=== PATIENT | female | born 1935 | race Caucasian/White ===

== ENCOUNTER 2016-09-16 17:50 | Inpatient (IN) | payer MEDICARE, BC ==
[2016-09-16] MEDS ORDERED: 0.9 % SODIUM CHLORIDE 1000ML 1,000 ML IV SCH (18:15)
[2016-09-16 19:03] LABS: BASO % 0.5 % (0-6); EOS % 1.1 % (0-6); GRAN % 69.3 % (47-80); HEMATOCRIT 37.6 % (35.0-47.0); HEMOGLOBIN 12.4 gm/dl (11.6-16.0); LYMPH % 21.4 % (16-45); MEAN CELL VOLUME 106.8 fl (81-97); MEAN CORPUSCULAR HEMOGLOBIN 35.2 pg (27-33); MEAN PLATELET VOLUME 11.6 fl (7.4-10.4); MONO % 7.7 % (0-9); PLATELET COUNT 148 K/uL (130-400); RED BLOOD COUNT 3.52 M/uL (3.80-5.40); WHITE BLOOD COUNT W/O DIFF 5.6 K/uL (4.2-12.2)
[2016-09-16 19:08] LABS: ANION GAP 7.5 (7-16); BLOOD UREA NITROGEN 12 mg/dL (7-17); CARBON DIOXIDE 26.5 mmol/L (22-30); CREATININE 0.8 mg/dL (0.52-1.04); EST GLOMERULAR FILTRATION RATE > 60 ml/min; GLUCOSE,RANDOM 92 mg/dL (70-110); INR 0.95; PARTIAL THROMBOPLASTIN TIME 31.3 SECONDS (24.5-39.1); PROTHROMBIN TIME (PATIENT) 10.7 SECONDS (9.5-12.1)
[2016-09-16 19:16] LABS: CKMB 1.1 ug/L (0-6)
[2016-09-16] MEDS ORDERED: HEPARIN SODIUM 1000 UNIT/1 ML 10ML VIAL IVP ONE (19:25)
[2016-09-16] MEDS: HEPARIN SODIUM/D5W 25,000 UNITS in DEXTROSE 5 % IN WATER 1 BAG IV SCH ×2 (22:00)
[2016-09-17 03:13] LABS: BASO % 0.7 % (0-6); GRAN % 71.8 % (47-80); HEMATOCRIT 35.7 % (35.0-47.0); HEMOGLOBIN 12.5 gm/dl (11.6-16.0); LYMPH % 19.2 % (16-45); MEAN CELL VOLUME 105.3 fl (81-97); MEAN PLATELET VOLUME 10.1 fl (7.4-10.4); MONO % 6.3 % (0-9); PLATELET COUNT 155 K/uL (130-400); RED BLOOD COUNT 3.39 M/uL (3.80-5.40); WHITE BLOOD COUNT W/O DIFF 5.9 K/uL (4.2-12.2)
[2016-09-17 03:17] LABS: MEAN CORPUSCULAR HEMOGLOBIN 36.8 pg (27-33)
[2016-09-17 03:23] LABS: ANION GAP 5.2 (7-16); BLOOD UREA NITROGEN 10 mg/dL (7-17); CARBON DIOXIDE 28.8 mmol/L (22-30); CREATININE 0.7 mg/dL (0.52-1.04); EST GLOMERULAR FILTRATION RATE > 60 ml/min; GLUCOSE,RANDOM 95 mg/dL (70-110)
[2016-09-17 03:35] LABS: TROPONIN I 0.023 ng/mL (0.00-0.034)
[2016-09-17] MEDS: METOPROLOL SUCC 25 MG TAB.ER PO SCH ×2 (04:02→09:08)
[2016-09-17 05:37] LABS: URINE APPEARANCE CLEAR; URINE BILIRUBIN NEGATIVE (NEGATIVE); URINE BLOOD NEGATIVE (NEGATIVE); URINE COLOR YELLOW; URINE GLUCOSE (UA) NEGATIVE (NEGATIVE); URINE KETONE NEGATIVE (NEGATIVE); URINE LEUKOCYTE ESTERASE NEGATIVE (NEGATIVE); URINE NITRITE NEGATIVE (NEGATIVE); URINE PROTEIN TRACE (NEGATIVE); URINE UROBILINOGEN 0.2 E.U./dL (0.20 - 1.00)
[2016-09-17] MEDS: LEVOTHYROXINE SOD 112 MCG TAB PO SCH ×2 (06:17→09:19)
[2016-09-17] MEDS ORDERED: POTASSIUM CHLORIDE 20 MEQ TABLET PO ONE (06:23)
[2016-09-17] MEDS: LISINOPRIL 20 MG TABLET PO SCH ×2 (06:31→09:09)
--- NOTE | 2016-09-17 07:27 | RADIOLOGY REPORT ---
EXAM: CHEST, TWO VIEWS HISTORY: WEAKNESS AND NEW ONSET ATRIAL FIBRILLATION. TECHNIQUE: Two views of the chest were provided along with the comparison study dated 05/10/16. FINDINGS: Cardiomegaly is noted. Tortuosity of the thoracic aorta is again noted. There is an abdominal aortic stent graft identified within the upper abdomen. Prominent hilar pulmonary vasculature are identified. Small bilateral pleural effusions are identified. Possible small left posterior lower lobe passive atelectasis and/or infiltrate may be present. Tee B lines are identified bilaterally. There is pulmonary vascular equalization identified bilaterally with prominent interstitial markings suggesting pulmonary edema. These findings suggest mild to moderate congestive heart failure. No pneumothorax is noted. IMPRESSION: FINDINGS SUGGESTIVE OF MILD TO MODERATE CONGESTIVE HEART FAILURE. SMALL BILATERAL PLEURAL EFFUSIONS WITH MILD LEFT POSTERIOR LOWER LOBE PASSIVE ATELECTASIS AND/OR INFILTRATE MAY BE PRESENT. FOLLOW-UP PA AND LATERAL VIEWS OF THE CHEST CAN BE OBTAINED UNTIL RESOLUTION OF FINDINGS. JOB NUMBER: [id number] MTDD
--- NOTE | 2016-09-17 07:50 | History and Physical Report ---
CHIEF COMPLAINT/HISTORY OF CHIEF COMPLAINT: Weakness and some dyspnea over the last three or four days to a week. She also feels an irregular heartbeat which she does not really feel, she just feels it when she feels her pulse. She went to Dr. James's office today who evaluated her, he felt that she should be admitted to the hospital because of new onset atrial fibrillation, dyspnea and weakness. She was a direct admit to the hospital. She denies any chest pain. She has a dry cough. PAST MEDICAL HISTORY: She had an aortic stent or mesh put in the aorta, it is not clear exactly what surgery she had done maybe some sort of conduit for the aorta, but she was not really sure, done about ten years ago at [facility]. She also has COPD, hypertension, and hypothyroidism. PAST SURGICAL HISTORY: Aortic stent or conduit, biopsy of the lung, knee surgery, and macular degenerative surgery of her eye. She also has had bladder stones in the past. She has had lupus and polymyositis. MEDICATIONS ON ADMISSION: Lisinopril 20 mg a day, Levothyroxine 112 mcg per day , and Toprol XL 25 mg per day. ALLERGIES: No known drug allergies. FAMILY/PSYCHOSOCIAL HISTORY: Grandparents had diabetes. Mother and grandparents had heart disease. She is a current every day smoker. No alcohol or drug use. She had lung cancer and radiation therapy to her lung. REVIEW OF SYSTEMS: HEENT: No upper respiratory infectious symptoms, cough, cold, or congestion. Cardiovascular: No chest pain, but she has an irregular heartbeat and weakness. Respiratory: She has a dry cough. Gastrointestinal: No nausea, vomiting, diarrhea, black stools, or bloody stools. Genitourinary: No dysuria, hematuria, frequency, or burning on urination. Musculoskeletal: She has arthritis and lupus. Neurologic: No CVA, paralysis, or paresthesias. Gynecologic: No lumps in her breasts. She has had lung cancer in the past with radiation therapy. No vaginal bleeding. Endocrine: She has hypothyroidism. Integument: No rash, ulcers, change in moles or yellow skin. PHYSICAL EXAMINATION: Height is 5'7", weight is 116 pounds. Vital signs: Temperature is 98.2, pulse is 81, blood pressure is 187/104, respiratory rate is 12, O2 saturation is 94% on room air. HEENT: Pupils are equal, round and reactive to light and accommodation. Extraocular muscles are intact. Throat is clear. Nose is clear. Tympanic membranes are dobbins. NECK: Supple. No jugular venous distention. No hepatojugular reflex. No carotid bruits. Thyroid is smooth. CARDIOVASCULAR: Irregular rate and rhythm. LUNGS: Clear to auscultation and percussion. ABDOMEN: Soft, nontender. No hepatosplenomegaly. No masses. No tenderness. Bowel sounds are active. No bruits. EXTREMITIES: No pitting edema. No cyanosis. No clubbing. Full range of motion. Peripheral pulses are good. BREASTS: Deferred. GYNECOLOGICAL: Deferred. RECTAL: Deferred. NEUROLOGICAL: Cranial nerves II through XII intact. No gross defects. Sensation normal. Strength normal. Deep tendon reflexes are equal bilaterally. Babinski's negative. MENTAL STATUS: Alert and oriented times three. IMPRESSION: 1. NEW ONSET ATRIAL FIBRILLATION. 2. DYSPNEA. 3. WEAKNESS. 4. HISTORY OF HYPERTENSION. 5. HISTORY OF HYPOTHYROIDISM. 6. HISTORY OF LUNG CANCER WITH RADIATION THERAPY MANY YEARS AGO. PLAN: IV heparin with a bolus and infusion, we will start Coumadin therapy and we will get a cardiology consult. Dale Almonte D.O. Date & Time JOB NUMBER: [id number] MTDD
[2016-09-17] MEDS ORDERED: WARFARIN 5 MG TAB PO ONE (08:12)
[2016-09-17] MEDS ORDERED: CLONIDINE HCL 0.1 MG TABLET PO ONE (08:14)
[2016-09-17] MEDS ORDERED: FUROSEMIDE IV 20MG/2ML VIAL IVP ONE (08:21)
[2016-09-17] MEDS ORDERED: PANTOPRAZOLE SODIUM 40 MG TABLET PO SCH (09:00)
[2016-09-17 09:36] LABS: ANION GAP 7.4 (7-16); BLOOD UREA NITROGEN 9 mg/dL (7-17); CARBON DIOXIDE 28.6 mmol/L (22-30); CREATININE 0.7 mg/dL (0.52-1.04); EST GLOMERULAR FILTRATION RATE > 60 ml/min; GLUCOSE,RANDOM 99 mg/dL (70-110)
[2016-09-17] MEDS ORDERED: ASPIRIN 81 MG CHEWABLE TABLET PO SCH (10:00)
[2016-09-17] MEDS ORDERED: ASPIRIN 325 MG TAB ENTERIC-COATED PO SCH (10:00)
[2016-09-17] MEDS ORDERED: ONDANSETRON HCL IV 4 MG/2 ML VIAL IVP PRN (12:50)
[2016-09-17] MEDS ORDERED: ACETAMINOPHEN 500 MG TABLET PO PRN (17:40)
[2016-09-17] MEDS ORDERED: HYDRALAZINE HCL 10 MG TABLET PO ONE (17:43)
[2016-09-17] MEDS ORDERED: LABETALOL HCL 5MG/ML, 20ML VIAL IV ONE (17:57)
[2016-09-17] MEDS: HEPARIN SODIUM/D5W 25,000 UNITS in DEXTROSE 5 % IN WATER 1 BAG IV SCH ×2 (19:58)
--- NOTE | 2016-09-18 07:33 | CT SCAN REPORT ---
EXAM: HEAD CT WITHOUT CONTRAST HISTORY: CONFUSION, DEHYDRATION, HALLUCINATIONS. TECHNIQUE: Contiguous axial images from the cerebral convexities to the foramen magnum were obtained without contrast. Comparison: None. Hand dominance: Right. FINDINGS: Mild generalized atrophy of the brain. No acute intracranial hemorrhage, mass effect, or midline shift. Extensive decreased attenuation in the subcortical and periventricular white matter of the cerebral hemispheres. No CT evidence of large acute territorial infarct. The ventricles, basal cisterns, and sulci are within normal limits. The osseous structures, soft tissues, and paranasal sinuses are unremarkable. IMPRESSION: 1. NO ACUTE INTRACRANIAL PROCESS. 2. MILD GENERALIZED ATROPHY OF THE BRAIN WITH EXTENSIVE CHRONIC SMALL VESSEL ISCHEMIC CHANGE. JOB NUMBER: [id number] [facility]
--- NOTE | 2016-09-18 09:49 | Medical Records Consult ---
CONSULTATION DATE: 09/17/2016. REFERRING PHYSICIAN: Dale Almonte D.O. CONSULTING PHYSICIAN: Juan Jordan M.D. REASON FOR CONSULTATION: Atrial fibrillation and congestive heart failure. HISTORY OF PRESENTING ILLNESS: Ms. Castellano is an 80-year-old female with a history of mild aortic stenosis and mild to moderate aortic insufficiency. She presented to [facility] with complaints of weakness and nausea for three to four weeks. She lives with her daughter and [id number]. Her daughter brought her in because she was getting too weak to even walk around the house, and she was nauseous and had loss of appetite. On arrival to the emergency department the patient was found to be in atrial fibrillation, and she was admitted. This is a new onset atrial fibrillation. The patient denied any chest pain. She denies any pedal edema, orthopnea, or paroxysmal nocturnal dyspnea. She does complain of a dry cough. The patient has a history of bronchogenic carcinoma and had seen Dr. Britt in the past. She also has a history of chronic obstructive pulmonary disease as well as hypertension and hypothyroidism. The patient was admitted to [facility] in October of 2015 with complaints of chest pain. She underwent cardiac catheterization in which no obstructive lesions warranting angioplasty were seen. She had normal left ventricular function. The patient has been on Toprol-XL 25 mg daily and has been having a controlled ventricular response with her atrial fibrillation. She has had some episodes of bradycardia with pauses of up to 2 seconds during this admission on her bus monitor. However, she denies any syncopal or presyncopal episodes. The patient also was noticed to have very high blood pressure, and she also started having headaches. She denies any other focal neurologic deficits. PAST MEDICAL HISTORY: Her past medical history is significant for chronic obstructive pulmonary disease, hypertension, hypothyroidism, mild aortic valve stenosis, moderate aortic valve insufficiency, and a history of bronchogenic carcinoma. PAST SURGICAL HISTORY: Is significant for a lung biopsy, knee surgery, surgery for macular degeneration. MEDICATIONS: Her home medications include: Lisinopril 20 mg daily, Toprol-XL 25 mg daily, levothyroxine 112 micrograms daily. ALLERGIES: No known drug allergies. REVIEW OF SYSTEMS: The patient denies any fevers or chills but has been progressively getting weaker as explained in the history of present illness. She denies any pedal edema. She denies any palpitations in spite of the atrial fibrillation. She has no history of anxiety or depression. PHYSICAL EXAMINATION: General: The patient is an 80-year-old female who is sitting up in bed. She is alert and oriented x 3. Her family is at her bedside. Vital Signs: She has a blood pressure of 187/104 mm Hg, a heart rate of 74 beats per minute, a respiratory rate of 12 per minute, 02 saturation is 94% on room air, temperature of 98.3 degrees Fahrenheit. HEENT: On examination she is normocephalic, atraumatic. The pupils are equal and reactive to light. The extraocular muscles are intact. Neck: The neck is supple. Cardiovascular: On cardiovascular examination she has an irregularly irregular heart rhythm with a grade II/ systolic ejection radiating to the carotids. Lungs: The lungs are clear to auscultation bilaterally. Abdomen: The abdomen is soft and nontender. Neurological: Examination is nonfocal. LABORATORY DATA: Our laboratory data shows a white count of 5.9, hemoglobin of 12.5, and a hematocrit of 35.7. Platelet count is 155. PTT is 71.10, BUN 12, creatinine 0.8. Estimated GFR is greater than 60, sodium 142. Potassium is low at 3.1. Chloride is 108, C02 26.5, calcium 9.1. N-terminal pro-BNP is elevated at 7,670. Troponins were 0.016 and then 0.023. DIAGNOSTIC DATA: Chest x-ray shows vascular congestion suggestive of congestive heart failure. CT of the head does not show any acute intracranial process. EKG shows atrial fibrillation with a controlled ventricular response. ASSESSMENT AND PLAN: 1. New onset atrial fibrillation. Ms. Castellano has new onset atrial fibrillation with a controlled ventricular response. I agree with continuing her on Heparin as she has a fairly well controlled ventricular rate with the metoprolol 25 mg daily which will be continued. She has had some episodes of pauses as long as 2 seconds, and I would recommend she continue to be observed on bus monitor. The patient appears to be fairly symptomatic with her atrial fibrillation in the form of being tired and fatigued, and in my opinion will benefit from converting back to sinus rhythm. I would consider doing a transesophageal echocardiography-guided cardioversion. I have explained to the patient the procedure and possible outcomes. She sounds understanding and wants to proceed. The patient is being transferred to [facility]. I will follow her up at [facility] and will consider transesophageal cardioversion. 2. Since her CHADS vascular score is 4.0, she will need long-term anticoagulation as well, and I would prefer one of the newer oral anticoagulants. We will check her coverage and then start her accordingly. 3. Accelerated hypertension. The patient has significantly elevated blood pressure. I would recommend starting her on p.r.n. hydralazine as well as labetalol and continuing her on the Toprol and lisinopril. I will also add Amlodipine and then titrate the doses accordingly. The patient's nausea most likely is because of the hypertension. CT of the brain does not show any acute intracranial process which is reassuring. 4. Elevated troponins. The patient's elevated cardiac biomarkers are most likely because of the atrial fibrillation as well as the significant hypertension, and it is not because of acute coronary syndrome. The patient does not have any chest pain, and her cardiac catheterization in October of 2015 did not show any obstructive coronary artery disease. However, we will trend the troponins as well. 5. The patient's echocardiography showed preserved left ventricular systolic function. 6. Aortic valve disorder. The patient has mild aortic valve stenosis and mild to moderate aortic valve insufficiency. This has not changed as compared to last year's echocardiogram. 7. Heart failure with a preserved ejection fraction. The patient has diastolic heart failure secondary to atrial fibrillation and accelerated hypertension. I agree with intravenous diuresis as well as supplementing the potassium and managing the hypertension. I would recommend increasing the intravenous furosemide dose to 40 mg daily. Thank you very much for involving us in the management of Ms. Castellano. We will follow her up during her hospitalization at [facility]. Juan Jordan M.D. Date Time JOB NUMBER: [id number] MTDD
--- NOTE | 2016-09-20 13:24 | Discharge Summary ---
DATE OF DISCHARGE: 09/17/2016. DATE OF DICTATION: 09/18/2016 at 8:58 a.m. DISCHARGE DIAGNOSES: 1. New onset atrial fibrillation. 2. Congestive heart failure. 3. Weakness. 4. Nausea and inability to eat. 5. A history of hypertension. 6. A history of hypothyroidism. 7. A history of lung cancer with radiation therapy diagnosed in April of 2015. Dr. Britt is her oncologist. ATTENDING PHYSICIAN: Dale Almonte D.O. REASON FOR HOSPITALIZATION: Weakness, new onset atrial fibrillation, and dyspnea. HISTORY OF THE PRESENT ILLNESS: This 80-year-old female developed weakness and dyspnea over the last three to four days to a week. She noticed an irregular pulse. She went in to see Dr. James in the office. He evaluated her and felt that she needed to be admitted for new onset atrial fibrillation, dyspnea, and weakness. She was a direct admit to the hospital. She denies any chest pain. She has a dry cough. SIGNIFICANT FINDINGS: LABORATORY DATA: The troponin-I and CKMB were normal. DIAGNOSTIC DATA: Chest x-ray showed congestive heart failure. EKG showed atrial fibrillation. An echocardiogram was done by Dr. Jordan and showed diastolic heart failure. CONSULTATION: She had a consultation with Dr. Elvira Jordan who felt the patient should be transferred up to [facility] for conversion of her atrial fibrillation and further treatment and further diagnosis of her nausea and inability to eat. HOSPITAL COURSE: The patient was having a hard time with her nausea and was unable to eat. She has lost about 5 pounds on the left three months, according to her daughter. She was given Lasix 20 mg intravenous which helped her breathing. Her blood pressure was high throughout the hospitalization. Her normal blood pressure medications were given and also Clonidine 0.1 mg and then hydralazine 10 mg and labetalol 15 mg intravenous prior to discharge. DISCHARGE INSTRUCTIONS: The patient was discharged and transferred to [facility] via ambulance for further treatment. Dale Almonte D.O. Date Time JOB NUMBER: [id number] [facility]
== END 2016-09-17 20:20 | disposition short-term general hospital (02) | DRG 310 ==
LOC: MEDSURG 17:50
PROVIDERS: ADMIT Emergency Medicine; ATTEND Emergency Medicine
DX: I48.0 Paroxysmal atrial fibrillation (principal); E03.9 Hypothyroidism, unspecified; J44.9 Chronic obstructive pulmonary disease, unspecified; I10 Essential (primary) hypertension; Z85.118 Personal history of other malignant neoplasm of bronchus and lung; I50.9 Heart failure, unspecified
CPT/HCPCS: 70450; 71020; 80048; 81003; 82553; 83880; 84484; 85025; 85610; 85730; 93005; 93010; J1940; J2405

== ENCOUNTER 2017-06-07 12:01 | Inpatient (IN) | payer MEDICARE, BC ==
[2017-06-07] MEDS ORDERED: PNEUM 13-VAL/PF 0.5 ML IM ONE (12:25)
[2017-06-07] MEDS: HYDROCODONE/APAP 5/325MG TABLET PO PRN ×3 (13:08→21:28)
[2017-06-07] MEDS: NICOTINE 21 MG/24 HOUR PATCH TD SCH (16:21)
[2017-06-07] MEDS: APIXABAN 5MG TABLET PO SCH (21:29)
[2017-06-07] MEDS: ATORVASTATIN 20 MG TABLET PO SCH (21:29)
[2017-06-07] MEDS: CHOLECALCIFEROL 1,000 UNIT TABLET PO SCH (21:29)
[2017-06-08] MEDS: HYDROCODONE/APAP 5/325MG TABLET PO PRN (02:21)
[2017-06-08] MEDS: PANTOPRAZOLE SODIUM 40 MG TABLET PO SCH (06:28)
[2017-06-08] MEDS: LEVOTHYROXINE SOD 112 MCG TAB PO SCH (06:28)
[2017-06-08] MEDS: HYDROCODONE/APAP 10/325 TABLET PO PRN ×3 (09:08→22:21)
[2017-06-08] MEDS: METOPROLOL SUCC 25 MG TAB.ER PO SCH (09:09)
[2017-06-08] MEDS: APIXABAN 5MG TABLET PO SCH ×2 (09:09→22:20)
[2017-06-08] MEDS: CALCIUM CARBONATE 500 MG TAB.CHEW PO SCH (09:10)
[2017-06-08] MEDS: FOLIC ACID 1 MG TABLET PO SCH (09:10)
[2017-06-08] MEDS: ASPIRIN 81 MG TABEC PO SCH (09:10)
[2017-06-08] MEDS: NICOTINE 21 MG/24 HOUR PATCH TD SCH (17:39)
[2017-06-08] MEDS: REMOVE PATCH 1 EACH MISC TD SCH (17:40)
[2017-06-08] MEDS: ATORVASTATIN 20 MG TABLET PO SCH (22:20)
[2017-06-08] MEDS: CHOLECALCIFEROL 1,000 UNIT TABLET PO SCH (22:20)
[2017-06-09] MEDS: HYDROCODONE/APAP 10/325 TABLET PO PRN ×3 (04:57→21:47)
[2017-06-09] MEDS: PANTOPRAZOLE SODIUM 40 MG TABLET PO SCH (06:24)
[2017-06-09] MEDS: LEVOTHYROXINE SOD 112 MCG TAB PO SCH (06:24)
--- NOTE | 2017-06-09 09:38 | History & Physical ---
History of Present Illness - Date Date of Service for History & Physical: 06/09/17 - History of Present Illness Admitting Diagnosis: S/P internal fixation intertrochanteric femur fx History of Present Illness: 81 y/o admitted for deconditioning after tripping over rug at home and falling sustaining right intertrochanteric femur fx on 06/03/17 s/p right femur internal fixation 06/05/17. At baseline she is to use a cane to assist with ambulation, she was not using cane at time of trip and fall. She is an every day smoker using an nicotine patch currently. Does have remote history of colon cancer s/p resection she reports about a year ago with 1 left upper lung lesion considered metastatic in nature that was treated with 4 rounds of radiation.She reports is over due for her oncology follow up Other pertinent medical history includes a -fib on chronic oral anticoagulation therapy, hypothyroidism, lupus, emphsema with PRN oxygen use at home, dyslipidemia. Post operatively had significant pain leading to poor mobility, she was very hesitant to get out of bed, had a grijalva placed at that time to assist with urinary output. One day after arrival to [facility] grijalva was DC'd, Edon increased for pain control, she was assisted out of bed several times by staff to sit in chair periodically while awaiting PT/OT consult. Dressing to right hip intact, due to be removed 06/12/17, no obvious signs of infection or hemorrhage. Post op hgb 9.7. Noted low albumin. Will be receiving Ensure supplementation during her admission. Recheck labs in 1 week, follow up Dr Sandra 2-4 weeks. General - Cognitive Patterns Orientation: Oriented x3 - Communication Preferred Language?: Thai Telephonic Rn Required: No Level of Education: Grade 9-11 Comprehension Ability: No Impairment Able to Read: Yes Able to Write: Yes Select best description of speech pattern: Clear Speech Ability to express ideas and wants: Understood Understanding verbal content: Understands - Psychosocial Well-Being Usual Living Arrangement: Children - Physical Functioning Activity Level: Up with assist x2 Turning: With total assist ROM Ability: Limited/Compromised Assistive Devices: 2 Wheel Walker Activity Level Comment: Using one of the hospital's Ambulation Ability: Dependent Bed Mobility: Needs Assist Transfer Ability: Dependent Bathing Ability: Needs Assist Personal Hygiene: Needs Assist Dressing Ability: Needs Assist Eating (Feeding) Ability: Independent Toileting Ability: Dependent Administer Own Medication: Independent Care Ability Comment: Pt resistant to move due to pain - Continence Bowel Pattern: Constipated Bladder Pattern: Normal - Dental Status Unable to examine: No Broken or loosely fitting full or partial dentures: No No natural teeth or tooth fragment(s) (edentulous): No Abnormal mouth tissue (ulcers, masses, oral lesions, etc.): No Obvious or likely cavity or broken natural teeth: No Inflamed or bleeding gums or loose natural teeth: No Mouth/facial pain, discomfort or difficulty chewing: No - Nutrition Screening Poor oral intake > 1 week: No Unplanned weight loss in specified time frame: No Nutrition Support via tube feedings or parenteral nutrition: No Pressure Ulcer: No Significantly underweight define as BMI <18.5 kg/m2: No Albumin <2.5mg/dL: No Persistent nausea/vomiting/diarrhea >3 days: No Difficulty chewing/swallowing/mouth sores: No Admitting Diagnosis: No Nutrition Risk Score: Low Risk Past Medical History - SOCIAL HISTORY Smoking Status: Current every day smoker - SURGICAL HISTORY Past Surgical History: Biopsy of lung tissue. knee surgery. macular hole surgery - RESPIRATORY Hx Respiratory Disorders: Yes Comment:: emphysema, possible lung CA - CARDIOVASCULAR Hx Cardio Disorders: Yes Hx Hypertension: Yes Hx Irregular Heartbeat: Yes (a-fib) Comment:: aortic stent - NEURO Hx Neuro Disorders: Yes Hx Dizziness: Yes - GI Hx GI Disorders: No Hx Reflux: Yes - Hx Genitourinary Disorders: Yes Hx Bladder Problem: Yes (bladder stones) Hx Kidney Stones: Yes - ENDOCRINE Hx Endocrine Disorders: Yes Hx Thyroid Disease: Yes - MUSCULOSKELETAL Hx Musculoskeletal Disorders: Yes Hx Arthritis: Yes Comment:: lupus - PSYCH Hx Psych Problems: Yes Hx Anxiety: Yes - HEMATOLOGY/ONCOLOGY Hx Hematology/Oncology Disorders: Yes Hx Anemia: Yes Hx Cancer: Yes (lung, colon) Hx Chemotherapy: No Hx Radiation Therapy: Yes Comment:: colectomy Family Medical History Any Significant Family History?: Yes Family Hx Comment (NOT TO BE USED IN PLACE OF ITEMS BELOW): father- MS Hx Diabetes: Grandparents Hx Heart Disease: Mother, Grandparents H&P Meds/Allergies - Allergies Allergies: Allergies Allergy/AdvReac Type Severity Reaction Status Date / Time No Known Drug Allergies Allergy Verified 11/25/15 16:29 - Active Medications Active Medications: Current Medications Hydrocodone Bitart/Acetaminophen (Edon 10mg/325mg) 1 each PO Q6H PRN PRN Reason: Pain - Severe (8-10) Last Admin: 06/09/17 04:57 Dose: 1 each Apixaban (Eliquis) 5 mg PO BID [facility] Last Admin: 06/08/17 22:20 Dose: 5 mg Aspirin (Ecotrin (Ec)) 81 mg PO DAILY [facility] Last Admin: 06/08/17 09:10 Dose: 81 mg Atorvastatin Calcium (Lipitor) 20 mg PO QHS [facility] Last Admin: 06/08/17 22:20 Dose: 20 mg Calcium Carbonate/Glycine (Tums) 1,000 mg PO DAILY [facility] Last Admin: 06/08/17 09:10 Dose: Not Given Folic Acid () 1 mg PO DAILY [facility] Last Admin: 06/08/17 09:10 Dose: 1 mg Levothyroxine Sodium (Synthroid) 112 mcg PO DAILYTHY [facility] Last Admin: 06/09/17 06:24 Dose: 112 mcg Metoprolol Succinate (Toprol Xl) 25 mg PO DAILY [facility] Last Admin: 06/08/17 09:09 Dose: 25 mg Miscellaneous (Remove Patch) 1 each TD Q24H [facility] Last Admin: 06/08/17 17:40 Dose: 1 each Nicotine (Nicotine 21mg) 1 patch TD Q24H [facility] Last Admin: 06/08/17 17:39 Dose: 1 patch [facility] Admin: 06/09/17 06:24 Dose: 40 mg Polyethylene Glycol (Miralax) 17 gm PO BID [facility] Vitamin D (Vitamin D3) 1,000 unit PO QHS [facility] Last Admin: 06/08/17 22:20 Dose: 1,000 unit Physical Exam - Vital Signs Vital Signs: Vital Signs - Last 24 Hrs Temp Pulse Pulse Resp BP BP Pulse Ox 06/09/17 07:16 98.7 F 59 L 18 117/72 96 06/08/17 22:25 99.8 F H 63 16 120/75 96 06/08/17 19:35 67 16 96 06/08/17 14:00 68 19 95 06/08/17 12:31 98.4 F 118/72 - General General Appearance: Alert, Oriented x3, Cooperative, Moderate distress (during assist out of bed to chair) Limitations: No limitations - Head Head exam: Atraumatic, Normocephalic - Eye Eye exam: Normal appearance, PERRL - ENT ENT exam: Normal exam - Neck Neck exam: Normal inspection, Full ROM. negative: Tenderness - Respiratory Respiratory exam: Decreased breath sounds (t/o) - Cardiovascular Cardiovascular Exam: Regular rate, Normal rhythm, Normal heart sounds Peripheral Pulses: 2+: Dorsalis Pedis (R) - GI/Abdominal GI/Abdominal exam: Soft, Normal bowel sounds - Rectal Rectal exam: Deferred - exam: Deferred - Extremities Extremities exam: Normal inspection, Normal capillary refill, Other (RLE neurovascularly intact). negative: Calf tenderness, Pedal edema - Back Back exam: Reports: Normal inspection - Neurological Neurological exam: Alert, CN II-XII intact, Oriented X3 - Psychiatric Psychiatric exam: Anxious - Skin Skin exam: Intact, Normal color, Other (dressing intact to right hip, no evidence infection or hemorrhage from incision) H&P Results - Labs Result Diagrams: 06/13/17 06:00 06/13/17 06:00 Discharge Potential - Discharge Needs Community Services Used Prior to Admission: None Patient Discharge Plan Description: Return Home Plan - Swing Bed Certification Initial Certification Due: 06/07/17 14 Day Re-Cert Due: 06/21/17 44 Day Re-Cert Due: 07/21/17 74 Day Re-Cert Due: 08/20/17 - Detailed Diagnosis and Plan (1) Intertrochanteric fracture of right femur Current Visit: Yes Status: Acute Base Code: S72.141A - DISPLACED INTERTROCHANTERIC FRACTURE OF RIGHT FEMUR, INIT Comment: - mechanical fall 06/03/17 - internal fixation at [facility] by Dr Bolivar 06/05/17 - dressing to remain in place until 7 days post op ( 06/12/17) - pain control with Edon 10/325 Q 6 hrs prn - PT/OT eval - WBAT (2) A-fib Current Visit: Yes Status: Acute Base Code: I48.91 - UNSPECIFIED ATRIAL FIBRILLATION Comment: - chronic, continue Eliquis 5mg BID and Metoprolol 25 mg QD (3) DVT prophylaxis Current Visit: Yes Status: Acute Base Code: [id number] - Comment: - PT/OT - Eliquis (4) Full code status Current Visit: Yes Status: Acute Base Code: Z78.9 - OTHER SPECIFIED HEALTH STATUS
[2017-06-09] MEDS ORDERED: PSYLLIUM HUSK/ASPARTAME 3.4 GM POWD.PACK PO SCH (10:00)
--- NOTE | 2017-06-09 10:19 | Rehab Evaluation ---
Patient Information - Patient Information Diagnosis: S/P Internal Fixation Intertrochanteric Femur Fracture Ordered Treatment: PT Evaluate and Treat Status: Initial Evaluation Surgery: Yes (R hip Cephalomedulary Device ) Date of Surgery: 06/05/17 Past Medical/Surgical Hx: PAST MEDICAL/SURGICAL HISTORY Past Surgical History Biopsy of lung tissue knee surgery macular hole surgery PMH - Respiratory Hx Respiratory Disorders Yes Comment: emphysema, possible lung CA PMH - Cardiovascular Hx Cardiovascular Disorders Yes Hx Hypertension Yes Hx Irregular Heartbeat Yes: a-fib Comment: aortic stent PMH - Neuro Hx Neurological Disorders Yes Hx Dizziness Yes PMH - GI Hx Gastrointestinal Disorders No Hx Gastroesophageal Reflux Yes PMH - Hx Genitourinary Disorders Yes Hx Bladder Problem Yes: bladder stones Hx Kidney Stones Yes PMH - Endocrine Hx Endocrine Disorders Yes Hx Thyroid Disease Yes PMH - Musculoskeletal Hx Musculoskeletal Disorders Yes Hx Arthritis Yes Comment: lupus PMH - Psych Hx Psychiatric Problems Yes Hx Anxiety Yes PMH - Hematology/Oncology Hx Hematology/Oncology Yes Disorders Hx Anemia Yes Hx Cancer Yes: lung, colon Hx Chemotherapy No Hx Radiation Therapy Yes Comment: colectomy Social History: Detail (Pt. reports she lives in a single story home with her daughter and son-in-law. The pt. reports she has no stairs to ascend or descend , but does have a ramp that leads into the house. The pt. reports she has grab bars in her shower and by the toilet. The pt. uses a commode and has a walk in shower. The pt. reports she just has a small step to get into the tub, but that her son-in-law cut out a portion of the tub to make it easier to get in and out of the tub. The pt. reports she does not have a shower chair, and would not like to get one because she doesn't feel she would be able to have the strength to stand from the chair. The pt. reports she has a front wheeled walker, a single point cane, and a 3-point cane at home, but she does not use them because she feels they just get in her way. The pt. has oxygen at home, but does not currently use it. Before having the fracture, the patient was able to wash the dishes and do her laundry, and did cook for herself from time to time. The pt.'s daughter and son-in-law will be able to help as necessary.) Precautions: [place], Fall - Time With Patient Treatment Procedures: Detail (PT completed inpatient initial evaluation. Pt. was left seated in her chair with a seat cushion and her legs propped up with a step stool. The pt. was on 3L of oxygen and her call light was made available. Nursing was notified.) Subjective Information - Subjective Information Per Patient (The pt. reports she is currently in no pain. When she doesn't move the pt. reports she doesn't have pain. The pt. does report her pain spikes with any movement. The pt. is very apprehensive with moving her R LE and putting weight on it, and prefers to try to do everything independently. The pt. does not like help with moving her R LE. The pt. is currently on 3L of oxygen. The pt. reports she is a smoker and has a medical history significant of Raynaud's syndrome, colon cancer, SLE, and polymyelitis.) Objective Data - Pain Pain Present: No Pain Intensity: 0 (Pt. reported 0/10 pain upon start of evaluation. The pt. reports she doesn't have pain when she is at rest. The pt. reported her pain elevated to 7/10 upon supine to sit transfer and went down to a 4-5/10 when she was back into her chair. ) Pain Scale Used: Numeric (1 - 10) - Mental Status Patient Orientation: Oriented x3 - Visual Perception Appears within normal limits for therapeutic activities - ROM Not within normal limits (Pt. unable to demonstrate functional seated hip flexion against gravity bilaterally, with more difficulty on the R. Pt. is able to move bilat ankles into functional DF and PF. Pt. has within functioinal limit movement of L knee flexion and extension. Pt. unable to flex and ext. R knee secondary to pain.) - Strength/Tone Not within normal limits (L LE strength: hip flexion 3-/5, hip IR/ER 4+/5, knee flexion 3+/5, knee ext. 4-/5, Ankle DF 3+/5, PF 5/5. R LE was not assessed with manual muscle testing secondary to apprehension and complaints of pain. Pt. was able to minimally lift her R LE up against gravity in a seated position.) - Coordination Appears within normal limits for therapeutic activities - Bed Mobility Needs Assist (Pt. was able to complete a supine to sit in bed with with min assist. x1. The pt. did require the bed to be elevated into a seated position for she didn't have the strength to push herself up from a supine to sit position. The pt. verbalized she wanted to do everything independently and didn' t want anyone to help move her R LE. The pt. used the bed rests to to help with scooting up in bed. The PT helped with pressing down on the bed to create small depressions for the pt. to slide her R foot in to assist her in getting to the edge of her bed. It took the pt. about 30 min to get to the edge of bed and she required multiple breaks secondary to shortness of breath and fatigue. The pt. was very apprehensive and fearful of moving her R LE because she was afraid of the pain. upine position) - Transfers Needs Assist (Pt. required mod assist x1 to sit to stand transfer. Pt. required verbal cueing to press off the bed with one hand and to press on the walker with the other. Pt. was able to complete stand to sit transfer independently CGA x2, but did require verbal cueing to reach back to feel for the chair and multiple attempts to scoot back into the chair. PT did assist by pulling on the blanket underneath the pt. to help scoot her back into a safe position in the chair. This transfer took about 20-30 mins secondary to the pt. requiring rest breaks due to shortness of breath and fatigue.) - Balance Balance Sitting: Good Balance Standing: Good - Sensation Intact - Gait Detail (Pt. exhibited a shuffle gait pattern when completing standing pivot transfer into the chair. The pt. would scoot her R heel from side to side to move the R LE, and never lifted it off the ground. The pt. did require verbal cueing to press down on her walker with her UEs when stepping forward with her L LE to help take the weight off of her R LE.) Therapy Assessment - Therapy Assessment Detail (Pt. exhibits LE weakness,LE ROM deficits, gait impairments, balance impairments, LE pain, apprehension to weight bear, apprehension to move her R LE and she requires assistance with bed moblity and transfers. Pt. will benefit from IP PT services to help decrease her impairments and meet her goals for PT. PT. believes the pt. could benefit from grabber or some kind of aid to help with dressing or moving her R LE. PT also feels pt. would benefit from using oxygen at home and her walker at home, preferable instead of her cane.) Patient Education - Patient Education Teaching Topic: Equipment Use Response: Verbalize Understanding Teaching Method: Discussion Teaching Recipient: Patient Barriers To Learning: Age Related Problem List - Problem List Physical Therapy Problem List: Detail (1. LE Weakness 2. LE ROM deficits 3. Gait impairments 4. Balance impairments 5. LE Pain 6. Apprehension to weight bear 7. Apprehension to move her R LE 8. Requires assistance with bed moblity and transfers) Goals - Goals Physical Therapy Goals: 1. Pt. will safely and independently ambulate 100ft with a front-wheeled walker with no complaints of increased pain over 11/06. 2. Pt. will report decreased apprehension with weight bearing and movement of her R LE. 3. Pt. will be safe and independent with all bed mobility and transfers. 4. Pt. will verbalize and demonstrate understanding of her home exercise program. 5. Pt. will complete the Tinetti Assessment Balance Tool to help assess the pt.'s balance. Prognosis - Prognosis Good Plan - Plan Physical Therapy Plan: Pt. will be seen 1-2x per day Friday-Friday for inpatient PT. Plan of care will include therapuetic exercise of LE strengthening /stretching ex, gait training, balance training, bed mobility and transfer training, pt. education on safety awareness around the home environment, pt. education on strategies to help decrease apprehension with weight bearing, and the installment of a home exercise program.
--- NOTE | 2017-06-09 12:43 | Rehab Evaluation ---
Patient Information - Patient Information Diagnosis: S/P Internal Fixation Intertrochanteric Femur Fracture Ordered Treatment: OT Evaluate and Treat Status: Initial Evaluation Surgery: Yes (R hip stabilization w/Cephalomedullary Device ) Date of Surgery: 06/05/17 Past Medical/Surgical Hx: PAST MEDICAL/SURGICAL HISTORY Past Surgical History Biopsy of lung tissue knee surgery macular hole surgery PMH - Respiratory Hx Respiratory Disorders Yes Comment: emphysema, possible lung CA PMH - Cardiovascular Hx Cardiovascular Disorders Yes Hx Hypertension Yes Hx Irregular Heartbeat Yes: a-fib Comment: aortic stent PMH - Neuro Hx Neurological Disorders Yes Hx Dizziness Yes PMH - GI Hx Gastrointestinal Disorders No Hx Gastroesophageal Reflux Yes PMH - Hx Genitourinary Disorders Yes Hx Bladder Problem Yes: bladder stones Hx Kidney Stones Yes PMH - Endocrine Hx Endocrine Disorders Yes Hx Thyroid Disease Yes PMH - Musculoskeletal Hx Musculoskeletal Disorders Yes Hx Arthritis Yes Comment: lupus PMH - Psych Hx Psychiatric Problems Yes Hx Anxiety Yes PMH - Hematology/Oncology Hx Hematology/Oncology Yes Disorders Hx Anemia Yes Hx Cancer Yes: lung, colon Hx Chemotherapy No Hx Radiation Therapy Yes Comment: colectomy Social History: Detail (Pt. reports she lives in a single story home with her daughter and son-in-law. The pt. reports she has no stairs to ascend or descend , but does have a ramp that leads into the house. The pt. reports she has grab bars in her shower and by the toilet. The pt. uses a commode and has a walk in bathtub. The pt. reports she just has a small step to get into the tub, but that her son-in-law cut out a portion of the tub to make it easier to get in and out of the tub. The pt. reports she does not have a shower chair, and would not like to get one because she doesn't feel she would be able to have the strength to stand from the chair. The pt. reports she has a front wheeled walker , a single point cane, and a 3-point cane at home, but she does not use them because she feels they just get in her way. The pt. has oxygen at home, but does not currently use it. Before having the fracture, the patient was able to wash the dishes and do her laundry, and did cook for herself from time to time. The pt.'s daughter and son-in-law will be able to help as necessary.) Precautions: [place], Fall, Other (WBAT Right LE) - Time With Patient Total Time Spent With Patient (Min): 60 Treatment Procedures: Detail (OT eval low complexity) Subjective Information - Subjective Information Per Patient Objective Data - Pain Pain Present: Yes (0/10 at rest, 7/10 with evaluation activities) - Mental Status Patient Orientation: Oriented x3 - Visual Perception Appears within normal limits for therapeutic activities (Pt wears glasses.) - ROM Not within normal limits (Nolan UE AROM WNL with the exception of the right shoulder which was injured previously. Right shoulder flexion limited to approx. 70 degrees actively.) - Strength/Tone Not within normal limits (Nolan UE MMT 4+/5 throughout with the exception of right shoulder flexion which is graded 3-/5.) - Coordination Appears within normal limits for therapeutic activities - Bed Mobility Needs Assist (Min assist for sit to stand, pt very fearful and slow with mobility due to pain.) - Transfers Needs Assist (Sit to stand from EOB with mod assist x 1 with 2 wheeled walker.) - Balance Balance Sitting: Good Balance Standing: Fair - Sensation Intact - Gait Detail (Pt able to scoot feet during transfer, unable to ambulate at this time.) - ADL's/IADL's Detail (Pt able to complete toileting hygiene Indly on commode chair, other self care activities are max assist.) Therapy Assessment - Therapy Assessment Detail (Pt presents with significant impairments in functional mobility, self cares due to increased pain. She has premorbid weakness in right UE and nolan LEs and she is currently on 3 liters of oxygen. She presents with decreased endurance for ADLs/IADLs.) Problem List - Problem List Physical Therapy Problem List: Detail (1. LE Weakness 2. LE ROM deficits 3. Gait impairments 4. Balance impairments 5. LE Pain 6. Apprehension to weight bear 7. Apprehension to move her R LE 8. Requires assistance with bed moblity and transfers) Occupational Therapy Problem List: Detail (1. Decreased Ind with functional mobility needed for safe and Ind self cares. 2. Decreased Ind with total body dressing. 3. Decreased Ind with showering 4. Decreased right UE strength and overall endurance needed for safe return home.) Goals - Goals Physical Therapy Goals: 1. Pt. will safely and independently ambulate 100ft with a front-wheeled walker with no complaints of increased pain over 11/06. 2. Pt. will report decreased apprehension with weight bearing and movement of her R LE. 3. Pt. will be safe and independent with all bed mobility and transfers. 4. Pt. will verbalize and demonstrate understanding of her home exercise program. 5. Pt. will complete the Tinetti Assessment Balance Tool to help assess the pt.'s balance. Occupational Therapy Goals: 1. Pt will be Ind with bed mobility and transfers from various surfaces to allow Ind with dressing. 2. Pt will be Ind with total body dressing. 3. Pt will be Ind with showering in sitting or standing. 4. Pt will demonstrate improved endurance needed for safe and Ind self cares. Prognosis - Prognosis Good Plan - Plan Physical Therapy Plan: Pt. will be seen 1-2x per day Friday-Friday for inpatient PT. Plan of care will include therapuetic exercise of LE strengthening /stretching ex, gait training, balance training, bed mobility and transfer training, pt. education on safety awareness around the home environment, pt. education on strategies to help decrease apprehension with weight bearing, and the installment of a home exercise program. Occupational Therapy Plan: OT 2-4 times weekly to address self cares, functional mobility, strength and overall endurance training to allow safe and Ind return home.
[2017-06-09] MEDS: APIXABAN 5MG TABLET PO SCH ×2 (12:46→21:44)
[2017-06-09] MEDS: ASPIRIN 81 MG TABEC PO SCH (12:46)
[2017-06-09] MEDS: FOLIC ACID 1 MG TABLET PO SCH (12:46)
[2017-06-09] MEDS: METOPROLOL SUCC 25 MG TAB.ER PO SCH (12:46)
[2017-06-09] MEDS: POLYETHYLENE GLY 17 GM PACKET PO SCH ×2 (12:47→21:41)
[2017-06-09] MEDS: CALCIUM CARBONATE 500 MG TAB.CHEW PO SCH (16:11)
[2017-06-09] MEDS: REMOVE PATCH 1 EACH MISC TD SCH (16:30)
[2017-06-09] MEDS: NICOTINE 21 MG/24 HOUR PATCH TD SCH (17:05)
[2017-06-09] MEDS: CHOLECALCIFEROL 1,000 UNIT TABLET PO SCH (21:45)
[2017-06-09] MEDS: ATORVASTATIN 20 MG TABLET PO SCH (21:45)
[2017-06-10] MEDS: HYDROCODONE/APAP 10/325 TABLET PO PRN ×2 (04:16→15:47)
[2017-06-10] MEDS: LEVOTHYROXINE SOD 112 MCG TAB PO SCH (06:05)
[2017-06-10] MEDS: PANTOPRAZOLE SODIUM 40 MG TABLET PO SCH (06:05)
[2017-06-10] MEDS: POLYETHYLENE GLY 17 GM PACKET PO SCH ×2 (09:44→22:40)
[2017-06-10] MEDS: FOLIC ACID 1 MG TABLET PO SCH (09:45)
[2017-06-10] MEDS: CALCIUM CARBONATE 500 MG TAB.CHEW PO SCH (09:45)
[2017-06-10] MEDS: APIXABAN 5MG TABLET PO SCH ×2 (09:45→22:40)
[2017-06-10] MEDS: METOPROLOL SUCC 25 MG TAB.ER PO SCH (09:45)
[2017-06-10] MEDS: ASPIRIN 81 MG TABEC PO SCH (09:45)
--- NOTE | 2017-06-10 11:39 | Occupational Therapy Tx Note ---
Occupational Therapy Tx Note - Treatment Note Tolerated: Good Total Time Spent With Patient: 45 (ADL) Occupational Therapy Treatment Note: Detail (S: Pt awake and feeling better this morning. O: Supine to sit with minimal assist. Pt able to sit at EOB and complete oral hygiene, partial sponge bathing and brushing hair with set up. She was able to stand from EOB to walker with CG assist and wash caitie area. Pt able to doff gown and don shirt, underpants and pants with min assist to start over right foot. Donned socks with assist to start over toes on right foot. Sit to stand with mod assist and pivoted to chair with 2 wheeled walker and CG assist. Pt left up in chair. A: Improved Ind with functional mobility and self care activities, less c/o fatigue and pain today.) Occupational Therapy Problem List: Detail (1. Decreased Ind with functional mobility needed for safe and Ind self cares. 2. Decreased Ind with total body dressing. 3. Decreased Ind with showering 4. Decreased right UE strength and overall endurance needed for safe return home.) Occupational Therapy Goals: 1. Pt will be Ind with bed mobility and transfers from various surfaces to allow Ind with dressing. 2. Pt will be Ind with total body dressing. 3. Pt will be Ind with showering in sitting or standing. 4. Pt will demonstrate improved endurance needed for safe and Ind self cares. Prognosis: Good Occupational Therapy Plan: OT 2-4 times weekly to address self cares, functional mobility, strength and overall endurance training to allow safe and Ind return home.
--- NOTE | 2017-06-10 14:55 | Physical Therapy Tx Note ---
Physical Therapy Tx Note - Treatment Note Total Time Spent With Patient: 30 Physical Therapy Tx Note: Detail (The patient was sleeping in bed when PT arrived. The patient required minimal PA to move R LE with supine to sit. The patient required moderate PA of 1 with sit to and from stand transfer. The patient ambulated slowly with wheeled walker WBAT on the R LE with CG of 1 and occasional assist of 1 to move R LE 13 feet x 1. The patient required frequent rest periods. The patient acheived a toilet to chair transfer with CG of one. The patient required mod/max PA of 1 with sit to stand from toilet. The patient has improved with movement.) Physical Therapy Problem List: Detail (1. LE Weakness 2. LE ROM deficits 3. Gait impairments 4. Balance impairments 5. LE Pain 6. Apprehension to weight bear 7. Apprehension to move her R LE 8. Requires assistance with bed moblity and transfers) Physical Therapy Goals: 1. Pt. will safely and independently ambulate 100ft with a front-wheeled walker with no complaints of increased pain over 11/06. 2. Pt. will report decreased apprehension with weight bearing and movement of her R LE. 3. Pt. will be safe and independent with all bed mobility and transfers. 4. Pt. will verbalize and demonstrate understanding of her home exercise program. 5. Pt. will complete the Tinetti Assessment Balance Tool to help assess the pt.'s balance. Physical Therapy Plan: Pt. will be seen 1-2x per day Friday-Friday for inpatient PT. Plan of care will include therapuetic exercise of LE strengthening /stretching ex, gait training, balance training, bed mobility and transfer training, pt. education on safety awareness around the home environment, pt. education on strategies to help decrease apprehension with weight bearing, and the installment of a home exercise program.
[2017-06-10] MEDS: NICOTINE 21 MG/24 HOUR PATCH TD SCH (15:49)
[2017-06-10] MEDS: SENNOSIDES/DOCUSATE SODIUM UD CAPSULE PO SCH (17:57)
[2017-06-10] MEDS: REMOVE PATCH 1 EACH MISC TD SCH (17:57)
[2017-06-10] MEDS: ATORVASTATIN 20 MG TABLET PO SCH (22:40)
[2017-06-10] MEDS: CHOLECALCIFEROL 1,000 UNIT TABLET PO SCH (22:40)
[2017-06-11] MEDS: HYDROCODONE/APAP 10/325 TABLET PO PRN ×3 (02:14→23:16)
[2017-06-11] MEDS: PANTOPRAZOLE SODIUM 40 MG TABLET PO SCH (07:08)
[2017-06-11] MEDS: LEVOTHYROXINE SOD 112 MCG TAB PO SCH (07:08)
[2017-06-11] MEDS: ASPIRIN 81 MG TABEC PO SCH (12:15)
[2017-06-11] MEDS: APIXABAN 5MG TABLET PO SCH ×2 (12:15→23:16)
[2017-06-11] MEDS: FOLIC ACID 1 MG TABLET PO SCH (12:15)
[2017-06-11] MEDS: METOPROLOL SUCC 25 MG TAB.ER PO SCH (12:16)
[2017-06-11] MEDS: SENNOSIDES/DOCUSATE SODIUM UD CAPSULE PO SCH (12:16)
[2017-06-11] MEDS: POLYETHYLENE GLY 17 GM PACKET PO SCH (12:16)
[2017-06-11] MEDS: CALCIUM CARBONATE 500 MG TAB.CHEW PO SCH (12:17)
--- NOTE | 2017-06-11 13:25 | Occupational Therapy Tx Note ---
Occupational Therapy Tx Note - Treatment Note Tolerated: Fair Total Time Spent With Patient: 45 (Pt. required extra time to complete tasks and multiple rest breaks between tasks) Occupational Therapy Treatment Note: Detail (Pt. required min assist with bed mobility to maneuver RLE to floor, and lift back into bed after session. Educ. was provided in strategies to assist bed mobility, but pt. continued to use awkward movement patterns and positions. Pt. required min assist sit<>stand from EOB to walker. Pt. was too fatigued and painful to ambulate to bathroom, so used bedside commode. Pt. able to let go of walker to manage clothing and sit <>stand walker to commode independently. Pt. Washed face seated EOB, with set- up. Completed BUE exercises seated EOB, 10 ea. of: isometric shd shrugs, rolls, retraction; yellow theraband shd flex to 90 degrees, horiz abd, biceps, & triceps. Pt. required short rest breaks between exercises d/t becoming SOB, and VC's to breathe during exercises.) Occupational Therapy Problem List: Detail (1. Decreased Ind with functional mobility needed for safe and Ind self cares. 2. Decreased Ind with total body dressing. 3. Decreased Ind with showering 4. Decreased right UE strength and overall endurance needed for safe return home.) Occupational Therapy Goals: 1. Pt will be Ind with bed mobility and transfers from various surfaces to allow Ind with dressing. 2. Pt will be Ind with total body dressing. 3. Pt will be Ind with showering in sitting or standing. 4. Pt will demonstrate improved endurance needed for safe and Ind self cares. Occupational Therapy Plan: OT 2-4 times weekly to address self cares, functional mobility, strength and overall endurance training to allow safe and Ind return home.
--- NOTE | 2017-06-11 13:51 | Physical Therapy Tx Note ---
Physical Therapy Tx Note - Treatment Note Tolerated: Good Total Time Spent With Patient: 30 Physical Therapy Tx Note: Detail (Pt. was sleeping when PT came in today. Upon waking, the pt. reported her R LE wasn't too sore for she had been given pain medication before PT arrived. The pt. was not on oxygen at this time and reported that she was told she didn't have to wear the oxygen at all times. Pt. required min assist x1 to complete supine to sit transfer to the edge of her bed. PT assisted with moving her R LE via request by the pt. The pt. had to push up on the bed handle and pull on the PTs hand to assist with sitting up. Pt. completed sit to stand transfer min assist x1 with minimal verbal cueing to push up with one arm on the bed and the other on the front-wheeled walker. Pt. ambulated 11 ft with front-wheeled walker and 3L of oxygen, and then asked to sit down due to shortness of breath and fatigue. Pt. reported her pain elevated to about 7-8/10. Pt. completed stand to sit transfer with min assist of guarding the R LE as the pt. lowered into the chair. Pt. completed ther ex of glute sets 1x10, quad sets 1x10, adductor pillow squeezes 1x10, and gluteal butterflies with glute squeeze 1x10. Pt. reported her pain went down after completion of therapy to 4/10. Pt. was left seated with 3L of oxygen hooked up and call light made available. Nursing staff was notified.) Physical Therapy Problem List: Detail (1. LE Weakness 2. LE ROM deficits 3. Gait impairments 4. Balance impairments 5. LE Pain 6. Apprehension to weight bear 7. Apprehension to move her R LE 8. Requires assistance with bed moblity and transfers) Physical Therapy Goals: 1. Pt. will safely and independently ambulate 100ft with a front-wheeled walker with no complaints of increased pain over 11/06. 2. Pt. will report decreased apprehension with weight bearing and movement of her R LE. 3. Pt. will be safe and independent with all bed mobility and transfers. 4. Pt. will verbalize and demonstrate understanding of her home exercise program. 5. Pt. will complete the Tinetti Assessment Balance Tool to help assess the pt.'s balance. Physical Therapy Plan: Pt. will be seen 1-2x per day Friday-Friday for inpatient PT. Plan of care will include therapuetic exercise of LE strengthening /stretching ex, gait training, balance training, bed mobility and transfer training, pt. education on safety awareness around the home environment, pt. education on strategies to help decrease apprehension with weight bearing, and the installment of a home exercise program.
[2017-06-11] MEDS: NICOTINE 21 MG/24 HOUR PATCH TD SCH (17:49)
[2017-06-11] MEDS: REMOVE PATCH 1 EACH MISC TD SCH (19:45)
[2017-06-11] MEDS: CHOLECALCIFEROL 1,000 UNIT TABLET PO SCH (23:16)
[2017-06-11] MEDS: ATORVASTATIN 20 MG TABLET PO SCH (23:16)
[2017-06-12] MEDS: POLYETHYLENE GLY 17 GM PACKET PO SCH ×3 (01:09→22:00)
[2017-06-12] MEDS: PANTOPRAZOLE SODIUM 40 MG TABLET PO SCH (06:52)
[2017-06-12] MEDS: LEVOTHYROXINE SOD 112 MCG TAB PO SCH (06:52)
[2017-06-12] MEDS: ASPIRIN 81 MG TABEC PO SCH (09:15)
[2017-06-12] MEDS: APIXABAN 5MG TABLET PO SCH ×2 (09:15→22:01)
[2017-06-12] MEDS: FOLIC ACID 1 MG TABLET PO SCH (09:15)
[2017-06-12] MEDS: METOPROLOL SUCC 25 MG TAB.ER PO SCH (09:16)
[2017-06-12] MEDS: CALCIUM CARBONATE 500 MG TAB.CHEW PO SCH (09:16)
[2017-06-12] MEDS: SENNOSIDES/DOCUSATE SODIUM UD CAPSULE PO SCH (09:16)
[2017-06-12] MEDS: HYDROCODONE/APAP 10/325 TABLET PO PRN ×2 (09:18→16:40)
--- NOTE | 2017-06-12 10:31 | Physical Therapy Tx Note ---
Physical Therapy Tx Note - Treatment Note Tolerated: Good Total Time Spent With Patient: 30 Physical Therapy Tx Note: Detail (Pt. reports she was given a pain medication prior to PT coming today and that her R LE isn't painful at the moment. Pt. reported she felt a little stiff today. Pt. was not wearing oxygen when PT entered the room. Pt. was put onto 3L of oxygen once seated at the edge of bed due to shortness of breath. Pt. required min assist x1 to complete supine to sit transfer in bed with helping move her R LE across and over to the edge of the bed. Pt. reported her pain went up to 6-7/10 at this time. Pt. completed sit to stand transfer independently CGA x1 with the use of a front wheeled walker. Pt. ambulated 22 ft. independently CGAx1 with front-wheeled walker and required verbal cueing for correct use of the walker with which leg to lead with. Pt. completed stand to sit transfer independently. Once seated, pt. completed ther ex of adductor pillow squeezes 1x10 and seated marches x10 each leg and required verbal cueing to not hold her breath. Pt. was then assisted back into bed for a sit to supine transfer requiring mod assist x2 to help lift legs into bed and to slowly lower her into a supine position. PT did instruct pt. on how to use the hook foot behind method for lifting her R LE into bed. Once supine, pt. completed ther ex of glute sets 1x10 and quad sets 1x10. Pt. tolerated treatment well and stated her pain levels went down once back lying in bed. Pt. was left supine with 3L of oxygen hooked up and call llight available. Nursing was notified.) Physical Therapy Problem List: Detail (1. LE Weakness 2. LE ROM deficits 3. Gait impairments 4. Balance impairments 5. LE Pain 6. Apprehension to weight bear 7. Apprehension to move her R LE 8. Requires assistance with bed moblity and transfers) Physical Therapy Goals: 1. Pt. will safely and independently ambulate 100ft with a front-wheeled walker with no complaints of increased pain over 11/06. 2. Pt. will report decreased apprehension with weight bearing and movement of her R LE. 3. Pt. will be safe and independent with all bed mobility and transfers. 4. Pt. will verbalize and demonstrate understanding of her home exercise program. 5. Pt. will complete the Tinetti Assessment Balance Tool to help assess the pt.'s balance. Physical Therapy Plan: Pt. will be seen 1-2x per day Friday-Friday for inpatient PT. Plan of care will include therapuetic exercise of LE strengthening /stretching ex, gait training, balance training, bed mobility and transfer training, pt. education on safety awareness around the home environment, pt. education on strategies to help decrease apprehension with weight bearing, and the installment of a home exercise program.
--- NOTE | 2017-06-12 16:02 | Physical Therapy Tx Note ---
Physical Therapy Tx Note - Treatment Note Tolerated: Good Total Time Spent With Patient: 30 Physical Therapy Tx Note: Detail (Patient states right hip sore. Patient was supine in bed upon [employer] arrival. Patient transferred supine to sit min assist x1 to lift right LE. Patient transferred sit to and from stand min assist x1. Patient ambulated 13 feet with wheeled walker CGA x1. Patient transferred sit to and from stand CGA x1. Patient ambulated 37 feet with wheeled walker CGA x1. Patient performed the following exercises x10 reps each: LAQ, seated hip flexion, seated heel raises, seated toe raises, seated isometric hip abduction, seated isometric hip adduction, and glut squeezes. Patient transferred sit to supine min assist x1 to lift LEs. Patient scooted up in bed independently. Patient tolerated treatment well. Patient displays decreased strength and endurance with LAQ, seated hip flexion, glut squeezes, and seated isometric hip abduction. Patient reports fatigued after treatment. Patient was left supine in bed with call light within reach.) Physical Therapy Problem List: Detail (1. LE Weakness 2. LE ROM deficits 3. Gait impairments 4. Balance impairments 5. LE Pain 6. Apprehension to weight bear 7. Apprehension to move her R LE 8. Requires assistance with bed moblity and transfers) Physical Therapy Goals: 1. Pt. will safely and independently ambulate 100ft with a front-wheeled walker with no complaints of increased pain over 11/06. 2. Pt. will report decreased apprehension with weight bearing and movement of her R LE. 3. Pt. will be safe and independent with all bed mobility and transfers. 4. Pt. will verbalize and demonstrate understanding of her home exercise program. 5. Pt. will complete the Tinetti Assessment Balance Tool to help assess the pt.'s balance. Prognosis: Good Physical Therapy Plan: Pt. will be seen 1-2x per day Friday-Friday for inpatient PT. Plan of care will include therapuetic exercise of LE strengthening /stretching ex, gait training, balance training, bed mobility and transfer training, pt. education on safety awareness around the home environment, pt. education on strategies to help decrease apprehension with weight bearing, and the installment of a home exercise program.
[2017-06-12] MEDS: REMOVE PATCH 1 EACH MISC TD SCH (16:41)
[2017-06-12] MEDS: NICOTINE 21 MG/24 HOUR PATCH TD SCH (16:41)
[2017-06-12] MEDS: CHOLECALCIFEROL 1,000 UNIT TABLET PO SCH (22:00)
[2017-06-12] MEDS: ATORVASTATIN 20 MG TABLET PO SCH (22:00)
[2017-06-13] MEDS: PANTOPRAZOLE SODIUM 40 MG TABLET PO SCH (06:31)
[2017-06-13] MEDS: LEVOTHYROXINE SOD 112 MCG TAB PO SCH (06:32)
[2017-06-13 07:13] LABS: BASO % 0.5 % (0-6); EOS % 2.3 % (0-6); GRAN % 71.4 % (47-80); HEMATOCRIT 27.7 % (35.0-47.0); LYMPH % 17.7 % (16-45); MEAN CORPUSCULAR HEMOGLOBIN 34.8 pg (27-33); MEAN CORPUSCULAR HGB CONC 30.3 g/dl (32-36); MEAN PLATELET VOLUME 9.6 fl (7.4-10.4); MONO % 8.1 % (0-9); PLATELET COUNT 285 K/uL (130-400); RED BLOOD COUNT 2.41 M/uL (3.80-5.40); RED CELL DISTRIBUTION WIDTH 13.7 % (11.5-14.5); WHITE BLOOD COUNT W/O DIFF 6.2 K/uL (4.2-12.2)
[2017-06-13 07:14] LABS: HEMOGLOBIN 8.4 gm/dl (11.6-16.0); MEAN CELL VOLUME 114.9 fl (81-97)
[2017-06-13 07:47] LABS: BLOOD UREA NITROGEN 17 mg/dL (8-23); CREATININE 0.7 mg/dL (0.5-0.9); EST GLOMERULAR FILTRATION RATE > 60 mL/min; GLUCOSE,RANDOM 92 mg/dL (74-109)
[2017-06-13] MEDS: HYDROCODONE/APAP 10/325 TABLET PO PRN (08:08)
--- NOTE | 2017-06-13 08:16 | Occupational Therapy Tx Note ---
Occupational Therapy Tx Note - Treatment Note Tolerated: Good Total Time Spent With Patient: 45 (ADL) Occupational Therapy Treatment Note: Detail (S: Pt awake and feeling stronger but still c/o pain. O: Supine to sit Indly. Sit to stand and amb to bathroom with 2 wheeled walker and CG assist using 2 liters of oxygen. Pt sat at sink and washed hair with set up. Doffed shirt and washed arms, chest Indly. Donned clean shirt Indly. Pt very fatigued and not wanting to continue with bathing. Sit to stand with mod assist and amb back to EOB with 2 wheeled walker and CG assist. Stand to sit Ind and sit to supine with mod assist for right LE. A: Slowly improving endurance overall, mobility tolerance improving) Occupational Therapy Problem List: Detail (1. Decreased Ind with functional mobility needed for safe and Ind self cares. 2. Decreased Ind with total body dressing. 3. Decreased Ind with showering 4. Decreased right UE strength and overall endurance needed for safe return home.) Occupational Therapy Goals: 1. Pt will be Ind with bed mobility and transfers from various surfaces to allow Ind with dressing. 2. Pt will be Ind with total body dressing. 3. Pt will be Ind with showering in sitting or standing. 4. Pt will demonstrate improved endurance needed for safe and Ind self cares. Prognosis: Good Occupational Therapy Plan: OT 2-4 times weekly to address self cares, functional mobility, strength and overall endurance training to allow safe and Ind return home.
[2017-06-13] MEDS: POLYETHYLENE GLY 17 GM PACKET PO SCH ×2 (09:53→22:55)
[2017-06-13] MEDS: FOLIC ACID 1 MG TABLET PO SCH (09:55)
[2017-06-13] MEDS: APIXABAN 5MG TABLET PO SCH ×2 (09:55→22:55)
[2017-06-13] MEDS: ASPIRIN 81 MG TABEC PO SCH (09:55)
[2017-06-13] MEDS: CALCIUM CARBONATE 500 MG TAB.CHEW PO SCH (09:55)
[2017-06-13] MEDS: SENNOSIDES/DOCUSATE SODIUM UD CAPSULE PO SCH (09:55)
[2017-06-13] MEDS: METOPROLOL SUCC 25 MG TAB.ER PO SCH (09:55)
--- NOTE | 2017-06-13 15:12 | Physical Therapy Tx Note ---
Physical Therapy Tx Note - Treatment Note Tolerated: Fair Physical Therapy Tx Note: Detail (Patient was sleeping supine in bed upon RN [facility]ACULT[facility] arrival. Patient states she's tired this afternoon from sitting in chair. Patient transferred supine to sit min assist x1 to lift right LE. Patient transferred sit to and from stand CGA x1. Patient ambulated 13 feet with 3L oxygen with wheeled walker CGA x1. Patient was left seated on toilet with pull cord within reach. Nursing was notified that patient was in the bathroom. Patient was not seen for continued treatment due to patient being in bathroom one hour later.) Physical Therapy Problem List: Detail (1. LE Weakness 2. LE ROM deficits 3. Gait impairments 4. Balance impairments 5. LE Pain 6. Apprehension to weight bear 7. Apprehension to move her R LE 8. Requires assistance with bed moblity and transfers) Physical Therapy Goals: 1. Pt. will safely and independently ambulate 100ft with a front-wheeled walker with no complaints of increased pain over 11/06. 2. Pt. will report decreased apprehension with weight bearing and movement of her R LE. 3. Pt. will be safe and independent with all bed mobility and transfers. 4. Pt. will verbalize and demonstrate understanding of her home exercise program. 5. Pt. will complete the Tinetti Assessment Balance Tool to help assess the pt.'s balance. Prognosis: Good Physical Therapy Plan: Pt. will be seen 1-2x per day Friday-Friday for inpatient PT. Plan of care will include therapuetic exercise of LE strengthening /stretching ex, gait training, balance training, bed mobility and transfer training, pt. education on safety awareness around the home environment, pt. education on strategies to help decrease apprehension with weight bearing, and the installment of a home exercise program.
[2017-06-13] MEDS: REMOVE PATCH 1 EACH MISC TD SCH (17:33)
[2017-06-13] MEDS: NICOTINE 21 MG/24 HOUR PATCH TD SCH (17:34)
[2017-06-13] MEDS: ATORVASTATIN 20 MG TABLET PO SCH (22:55)
[2017-06-13] MEDS: CHOLECALCIFEROL 1,000 UNIT TABLET PO SCH (22:55)
[2017-06-14] MEDS: PANTOPRAZOLE SODIUM 40 MG TABLET PO SCH (06:21)
[2017-06-14] MEDS: LEVOTHYROXINE SOD 112 MCG TAB PO SCH (06:21)
[2017-06-14] MEDS: CALCIUM CARBONATE 500 MG TAB.CHEW PO SCH (11:50)
[2017-06-14] MEDS: FOLIC ACID 1 MG TABLET PO SCH (11:51)
[2017-06-14] MEDS: ASPIRIN 81 MG TABEC PO SCH (11:53)
[2017-06-14] MEDS: SENNOSIDES/DOCUSATE SODIUM UD CAPSULE PO SCH (11:53)
[2017-06-14] MEDS: METOPROLOL SUCC 25 MG TAB.ER PO SCH (11:53)
[2017-06-14] MEDS: POLYETHYLENE GLY 17 GM PACKET PO SCH ×2 (11:53→23:04)
[2017-06-14] MEDS: APIXABAN 5MG TABLET PO SCH ×2 (11:53→23:03)
[2017-06-14] MEDS: ACETAMINOPHEN 500 MG TABLET PO PRN ×2 (12:00→23:03)
[2017-06-14] MEDS: NICOTINE 21 MG/24 HOUR PATCH TD SCH (19:00)
[2017-06-14] MEDS: REMOVE PATCH 1 EACH MISC TD SCH (19:01)
[2017-06-14] MEDS: ATORVASTATIN 20 MG TABLET PO SCH (23:03)
[2017-06-14] MEDS: CHOLECALCIFEROL 1,000 UNIT TABLET PO SCH (23:03)
[2017-06-15] MEDS: PANTOPRAZOLE SODIUM 40 MG TABLET PO SCH (06:08)
[2017-06-15] MEDS: LEVOTHYROXINE SOD 112 MCG TAB PO SCH (06:08)
[2017-06-15] MEDS: FOLIC ACID 1 MG TABLET PO SCH (09:38)
[2017-06-15] MEDS: ASPIRIN 81 MG TABEC PO SCH (09:38)
[2017-06-15] MEDS: APIXABAN 5MG TABLET PO SCH ×2 (09:38→21:19)
[2017-06-15] MEDS: METOPROLOL SUCC 25 MG TAB.ER PO SCH (09:39)
[2017-06-15] MEDS: SENNOSIDES/DOCUSATE SODIUM UD CAPSULE PO SCH (09:39)
[2017-06-15] MEDS: CALCIUM CARBONATE 500 MG TAB.CHEW PO SCH (09:39)
[2017-06-15] MEDS: POLYETHYLENE GLY 17 GM PACKET PO SCH ×2 (09:43→21:03)
[2017-06-15] MEDS: ACETAMINOPHEN 500 MG TABLET PO PRN ×2 (09:46→19:58)
[2017-06-15] MEDS: REMOVE PATCH 1 EACH MISC TD SCH (16:17)
[2017-06-15] MEDS: NICOTINE 21 MG/24 HOUR PATCH TD SCH (16:17)
[2017-06-15] MEDS: CHOLECALCIFEROL 1,000 UNIT TABLET PO SCH (21:19)
[2017-06-15] MEDS: ATORVASTATIN 20 MG TABLET PO SCH (21:19)
[2017-06-16] MEDS: LEVOTHYROXINE SOD 112 MCG TAB PO SCH (06:12)
[2017-06-16] MEDS: PANTOPRAZOLE SODIUM 40 MG TABLET PO SCH (06:13)
[2017-06-16] MEDS: ACETAMINOPHEN 500 MG TABLET PO PRN ×3 (08:56→21:05)
[2017-06-16] MEDS: ASPIRIN 81 MG TABEC PO SCH (09:33)
[2017-06-16] MEDS: FOLIC ACID 1 MG TABLET PO SCH (09:34)
[2017-06-16] MEDS: METOPROLOL SUCC 25 MG TAB.ER PO SCH (09:34)
[2017-06-16] MEDS: SENNOSIDES/DOCUSATE SODIUM UD CAPSULE PO SCH (09:34)
[2017-06-16] MEDS: CALCIUM CARBONATE 500 MG TAB.CHEW PO SCH (09:34)
[2017-06-16] MEDS: POLYETHYLENE GLY 17 GM PACKET PO SCH ×2 (09:34→21:01)
[2017-06-16] MEDS: APIXABAN 5MG TABLET PO SCH ×2 (09:34→21:02)
--- NOTE | 2017-06-16 10:59 | Physical Therapy Tx Note ---
Physical Therapy Tx Note - Treatment Note Tolerated: Good Total Time Spent With Patient: 30 Physical Therapy Tx Note: Detail (The patient was in bed when PT arrived. The patient completed supine to ans from sit independently with maximal verbal encouragement. The patient was independent with sit to and from stand x 2. The patient ambulated with wheeled walker and 3 L of O2 with supervision for safety WBAT on the R LE a distance of 50 feet x 1. The patient completed LE strengthening exercises including: seated gluteal sets, ankle pumps, hip adductor squeezes, hip abduction, LAQ, hamstring curls with resistance all x 10 reps. The patient still is able to complete mobility independent however movements are slow and verbal encouragement is required. The patient is able to acheive sit to stand from a higher surface.) Physical Therapy Problem List: Detail (1. LE Weakness 2. LE ROM deficits 3. Gait impairments 4. Balance impairments 5. LE Pain 6. Apprehension to weight bear 7. Apprehension to move her R LE 8. Requires assistance with bed moblity and transfers) Physical Therapy Goals: 1. Pt. will safely and independently ambulate 100ft with a front-wheeled walker with no complaints of increased pain over 11/06. 2. Pt. will report decreased apprehension with weight bearing and movement of her R LE. 3. Pt. will be safe and independent with all bed mobility and transfers. 4. Pt. will verbalize and demonstrate understanding of her home exercise program. 5. Pt. will complete the Tinetti Assessment Balance Tool to help assess the pt.'s balance. Physical Therapy Plan: Pt. will be seen 1-2x per day Friday-Friday for inpatient PT. Plan of care will include therapuetic exercise of LE strengthening /stretching ex, gait training, balance training, bed mobility and transfer training, pt. education on safety awareness around the home environment, pt. education on strategies to help decrease apprehension with weight bearing, and the installment of a home exercise program.
--- NOTE | 2017-06-16 15:23 | Occupational Therapy Tx Note ---
Occupational Therapy Tx Note - Treatment Note Tolerated: Fair Total Time Spent With Patient: 40 Occupational Therapy Treatment Note: Detail (Modified ind. bed mobility (with extra time, use of bed rails, and adjusting bed to needed height/raise) and sit< >stand t/f EOB to walker and commode to walker. Min assist to doff and thread BLE in pants and briefs while seated on commode (pt stated unable to bend that far). Educ. provided in adaptive dressing techniques. Pt. declined to shower d/ t fatigue, but took sponge bath seated on commode with SBA (set-up). Pt. ind. with UB dressing. Functional mobility EOB to commode in bathroom, washed hands at sink with VC, and returned to bed SBA using 2WW. BUE strengthening using 1 lb. free weights x10 ea: shd flex and abd to 90 degrees, biceps, triceps, and shd horiz abd. A: Pt. may benefit from educ. in use of radar mechanic to assist with LB dressing. Pt. improving activity tolerance and increased independence with bed mobility and t/f's. Pt. still uses awkward positioning and movements with bed mobility despite multiple attempts at providing educ. and adaptive strategies.) Occupational Therapy Problem List: Detail (1. Decreased Ind with functional mobility needed for safe and Ind self cares. 2. Decreased Ind with total body dressing. 3. Decreased Ind with showering 4. Decreased right UE strength and overall endurance needed for safe return home.) Occupational Therapy Goals: 1. Pt will be Ind with bed mobility and transfers from various surfaces to allow Ind with dressing. 2. Pt will be Ind with total body dressing. 3. Pt will be Ind with showering in sitting or standing. 4. Pt will demonstrate improved endurance needed for safe and Ind self cares. Prognosis: Good Occupational Therapy Plan: OT 2-4 times weekly to address self cares, functional mobility, strength and overall endurance training to allow safe and Ind return home.
--- NOTE | 2017-06-16 16:14 | Physician Progress Note ---
Subjective - Date Date of Progress Note: 06/16/17 - Admitting Diagnosis Diagnosis: S/P internal fixation intertrochanteric femur fx - Subjective Nursing Care Plan Problem List Activity Intolerance (Swing Bed) Start: 06/07/17 12: 09 Freq: Status: Active Protocol: Created 06/07/17 12:09 SS (Rec: 06/07/17 12:09 SS [id number]) Knowledge Deficit (Swing Bed) Start: 06/07/17 12: 09 Freq: Status: Active Protocol: Created 06/07/17 12:09 SS (Rec: 06/07/17 12:09 SS [id number]) Pain (Swing Bed) Start: 06/07/17 12: 09 Freq: Status: Active Protocol: Created 06/07/17 12:09 SS (Rec: 06/07/17 12:09 SS [id number]) Risk For Falls (Swing Bed) Start: 06/10/17 08: 35 Freq: Status: Complete Protocol: Created 06/10/17 08:35 MMT (Rec: 06/10/17 08:35 MMT [id number]) Edit Status 06/14/17 17:13 SAF (Rec: 06/14/17 17:13 SAF [id number]) Active=>Complete Skin Integrity, Impaired (Swing Bed) Start: 06/10/17 08: 34 Freq: Status: Active Protocol: Created 06/10/17 08:34 MMT (Rec: 06/10/17 08:34 MMT [id number]) Subjective: The patient is awake, alert and oriented. She says that she has had minimal pain from the site of surgery but she has been tolerating it well. General - Cognitive Patterns Speech: Normal Thought Process: Intact Thought Content: Normal - Communication Select best description of speech pattern: Clear Speech Ability to express ideas and wants: Understood Understanding verbal content: Understands - Mood and Behavior Patterns Appearance: Well Groomed Mood: Normal Attitude: Cooperative Motor Activity: Calm Affect: Appropriate - Physical Functioning Activity Level: Up with assist x1 Turning: Self ad korina ROM Ability: Moves all extremities Assistive Devices: Walker Activity Level Comment: Using one of the hospital's Ambulation Ability: Needs Assist Bed Mobility: Needs Assist Transfer Ability: Needs Assist Bathing Ability: Needs Assist Personal Hygiene: Independent Dressing Ability: Needs Assist Eating (Feeding) Ability: Independent Toileting Ability: Needs Assist Administer Own Medication: Needs Assist Care Ability Comment: Pt resistant to move due to pain - Continence Bowel Pattern: Normal for Patient Bladder Pattern: Normal Meds/Allergies - Allergies Allergies Allergy/AdvReac Type Severity Reaction Status Date / Time No Known Drug Allergies Allergy Verified 11/25/15 16:29 - Active Medications Current Medications Acetaminophen (Tylenol 500mg Tab) 1,000 mg PO Q6H PRN PRN Reason: Pain - General Last Admin: 06/16/17 08:56 Dose: 1,000 mg Hydrocodone Bitart/Acetaminophen ([place] 10mg/325mg) 1 each PO Q6H PRN PRN Reason: Pain - Severe (8-10) Last Admin: 06/13/17 08:08 Dose: 1 each Apixaban (Eliquis) 5 mg PO BID [facility] Last Admin: 06/16/17 09:34 Dose: 5 mg Aspirin (Ecotrin (Ec)) 81 mg PO DAILY [facility] Last Admin: 06/16/17 09:33 Dose: 81 mg Atorvastatin Calcium (Lipitor) 20 mg PO QHS [facility] Last Admin: 06/15/17 21:19 Dose: 20 mg Calcium Carbonate/Glycine (Tums) 1,000 mg PO DAILY [facility] Last Admin: 06/16/17 09:34 Dose: 1,000 mg Folic Acid () 1 mg PO DAILY [facility] Last Admin: 06/16/17 09:34 Dose: 1 mg Levothyroxine Sodium (Synthroid) 112 mcg PO DAILYTHY [facility] Last Admin: 06/16/17 06:12 Dose: 112 mcg Metoprolol Succinate (Toprol Xl) 25 mg PO DAILY [facility] Last Admin: 06/16/17 09:34 Dose: 25 mg Miscellaneous (Remove Patch) 1 each TD Q24H [facility] Last Admin: 06/15/17 16:17 Dose: 1 each Nicotine (Nicotine 21mg) 1 patch TD Q24H [facility] Last Admin: 06/15/17 16:17 Dose: 1 patch Pantoprazole Sodium (Protonix) 40 mg PO DAILYAC [facility] Last Admin: 06/16/17 06:13 Dose: 40 mg Polyethylene Glycol (Miralax) 17 gm PO BID [facility] Last Admin: 06/16/17 09:34 Dose: Not Given Senna/Docusate Sodium (Senna Plus) 1 each PO DAILY [facility] Last Admin: 06/16/17 09:34 Dose: 1 each Vitamin D (Vitamin D3) 1,000 unit PO QHS [facility] Last Admin: 06/15/17 21:19 Dose: 1,000 unit Objective - Vital Signs Vital Signs: Vital Signs - Last 24 Hrs Temp Pulse Resp BP BP Pulse Ox 06/16/17 12:57 98.6 F 132/76 06/16/17 08:00 98.6 F 84 18 132/76 94 L 06/15/17 20:00 98.8 F 96 H 18 104/61 94 L - General General Appearance: Alert, Oriented x3, Cooperative, Moderate distress (during assist out of bed to chair) Limitations: No limitations - Head Head exam: Atraumatic, Normocephalic - Eye Eye exam: Normal appearance, PERRL - ENT ENT exam: Normal exam - Neck Neck exam: Normal inspection, Full ROM. negative: Tenderness - Respiratory Respiratory exam: Decreased breath sounds (t/o) - Cardiovascular Cardiovascular Exam: Regular rate, Normal rhythm, Normal heart sounds Peripheral Pulses: 2+: Radial (R), Radial (L), Dorsalis Pedis (R), Dorsalis Pedis (L) - GI/Abdominal GI/Abdominal exam: Soft, Normal bowel sounds - Rectal Rectal exam: Deferred - exam: Deferred - Extremities Extremities exam: Normal inspection, Normal capillary refill, Other (RLE neurovascularly intact). negative: Calf tenderness, Pedal edema Image of Feet: 1 - bruising and tenderness - Back Back exam: Reports: Normal inspection - Neurological Neurological exam: Alert, CN II-XII intact, Oriented X3 - Psychiatric Psychiatric exam: Anxious - Skin Skin exam: Intact, Normal color, Other (dressing intact to right hip, no evidence infection or hemorrhage from incision) H&P Results - Labs Result Diagrams: 06/13/17 06:30 06/13/17 06:30 Discharge Potential - Discharge Needs Community Services Used Prior to Admission: None Patient Discharge Plan Description: Return Home Discharge Needs Comment: Has used [facility] in past. Would prefer no home healthcare, but open to it if recommended and would like [facility] if so. Plan - Swing Bed Certification Initial Certification Due: 06/07/17 14 Day Re-Cert Due: 06/21/17 44 Day Re-Cert Due: 07/21/17 74 Day Re-Cert Due: 08/20/17 - Detailed Diagnosis and Plan (1) Intertrochanteric fracture of right femur Current Visit: Yes Status: Acute Base Code: S72.141A - DISPLACED INTERTROCHANTERIC FRACTURE OF RIGHT FEMUR, INIT Comment: - s/p mechanical fall 06/03/17 and internal fixation at [facility] on 06/05 - dressing removed on 06/12, cont pain control with [place] 10/325mg PRN, stool softeners. - pt continuing daily PT/OT with improvement. Ambulation with assist/Fall precuations. - f/u with orthopedic surgery on 06/18. (2) A-fib Current Visit: Yes Status: Acute Base Code: I48.91 - UNSPECIFIED ATRIAL FIBRILLATION Comment: - chroni atrial fibrillation rate controlled with Metoprolol 25mg - anticoagualtion with Eliquis 5mg BID (3) Hypothyroid Current Visit: Yes Status: Acute Base Code: E03.9 - HYPOTHYROIDISM, UNSPECIFIED Comment: - cont Synthroid 112mcg QD (4) DVT prophylaxis Current Visit: Yes Status: Acute Base Code: [id number] - Comment: - PT/OT - Eliquis (5) Full code status Current Visit: Yes Status: Acute Base Code: Z78.9 - OTHER SPECIFIED HEALTH STATUS Comment: - FULL CODE - Disposition Improving daily with PT/OT. Re-assess after orthopedic visit this week.
[2017-06-16] MEDS: NICOTINE 21 MG/24 HOUR PATCH TD SCH (16:47)
[2017-06-16] MEDS: REMOVE PATCH 1 EACH MISC TD SCH (17:20)
[2017-06-16] MEDS: ATORVASTATIN 20 MG TABLET PO SCH (21:02)
[2017-06-16] MEDS: CHOLECALCIFEROL 1,000 UNIT TABLET PO SCH (21:02)
[2017-06-17] MEDS: PANTOPRAZOLE SODIUM 40 MG TABLET PO SCH (06:10)
[2017-06-17] MEDS: LEVOTHYROXINE SOD 112 MCG TAB PO SCH (06:10)
[2017-06-17 08:30] LABS: BLOOD UREA NITROGEN 15 mg/dL (8-23); CREATININE 0.8 mg/dL (0.5-0.9); EST GLOMERULAR FILTRATION RATE > 60 mL/min
[2017-06-17 08:32] LABS: BASO % 0.6 % (0-6); EOS % 2.9 % (0-6); GRAN % 69.2 % (47-80); HEMATOCRIT 26.4 % (35.0-47.0); HEMOGLOBIN 8.1 gm/dl (11.6-16.0); LYMPH % 20.8 % (16-45); MEAN CORPUSCULAR HGB CONC 30.7 g/dl (32-36); MEAN PLATELET VOLUME 9.5 fl (7.4-10.4); MONO % 6.5 % (0-9); PLATELET COUNT 326 K/uL (130-400); RED BLOOD COUNT 2.25 M/uL (3.80-5.40); WHITE BLOOD COUNT W/O DIFF 6.5 K/uL (4.2-12.2)
[2017-06-17 08:33] LABS: GLUCOSE,RANDOM 89 mg/dL (74-109)
[2017-06-17 08:34] LABS: MEAN CELL VOLUME 117.3 fl (81-97)
[2017-06-17] MEDS: ACETAMINOPHEN 500 MG TABLET PO PRN ×2 (08:42→16:23)
[2017-06-17] MEDS: CALCIUM CARBONATE 500 MG TAB.CHEW PO SCH (09:30)
[2017-06-17] MEDS: APIXABAN 5MG TABLET PO SCH ×2 (09:30→21:46)
[2017-06-17] MEDS: ASPIRIN 81 MG TABEC PO SCH (09:30)
[2017-06-17] MEDS: METOPROLOL SUCC 25 MG TAB.ER PO SCH (09:31)
[2017-06-17] MEDS: FOLIC ACID 1 MG TABLET PO SCH (09:31)
[2017-06-17] MEDS: POLYETHYLENE GLY 17 GM PACKET PO SCH ×3 (09:31→21:47)
[2017-06-17] MEDS: SENNOSIDES/DOCUSATE SODIUM UD CAPSULE PO SCH (09:31)
--- NOTE | 2017-06-17 11:23 | Physical Therapy Tx Note ---
Physical Therapy Tx Note - Treatment Note Tolerated: Good Total Time Spent With Patient: 35 Physical Therapy Tx Note: Detail (Pt was supinein bed and alert upon arrival. Pt completed supine to sit and sit to stand independently. Pt ambulated with wheeled walker and O2 at 3 L. x 135 ft. with contact gaurd assist for safety. Pt returned to room and sat edge of bed independently. Pt completed ex's of hip abduction, ankle pumps, LAQ, marches, hip adduction with pillow, and gluteal squeezes all x 10 bilaterally. Pt required min assist x 1 to return to supine to lift right leg but completed bed mobility independently. Pt was given bedside table and call button. Pt remained on O2 while in bed. Pt required many small rest periods during gait.) Physical Therapy Problem List: Detail (1. LE Weakness 2. LE ROM deficits 3. Gait impairments 4. Balance impairments 5. LE Pain 6. Apprehension to weight bear 7. Apprehension to move her R LE 8. Requires assistance with bed moblity and transfers) Physical Therapy Goals: 1. Pt. will safely and independently ambulate 100ft with a front-wheeled walker with no complaints of increased pain over 11/06. 2. Pt. will report decreased apprehension with weight bearing and movement of her R LE. 3. Pt. will be safe and independent with all bed mobility and transfers. 4. Pt. will verbalize and demonstrate understanding of her home exercise program. 5. Pt. will complete the Tinetti Assessment Balance Tool to help assess the pt.'s balance. Prognosis: Good Physical Therapy Plan: Pt. will be seen 1-2x per day Friday-Friday for inpatient PT. Plan of care will include therapuetic exercise of LE strengthening /stretching ex, gait training, balance training, bed mobility and transfer training, pt. education on safety awareness around the home environment, pt. education on strategies to help decrease apprehension with weight bearing, and the installment of a home exercise program.
--- NOTE | 2017-06-17 14:41 | Physical Therapy Tx Note ---
Physical Therapy Tx Note - Treatment Note Tolerated: Good Total Time Spent With Patient: 20 Physical Therapy Tx Note: Detail (The patient completed bed mobility independently with use of strap to lift RLE. The patient completed the following exercises supine: SLR with strap x 5 reps, SAQ, gluteal sets, quad sets x 10 reps. The patient is progressing well with mobilty.) Physical Therapy Problem List: Detail (1. LE Weakness 2. LE ROM deficits 3. Gait impairments 4. Balance impairments 5. LE Pain 6. Apprehension to weight bear 7. Apprehension to move her R LE 8. Requires assistance with bed moblity and transfers) Physical Therapy Goals: 1. Pt. will safely and independently ambulate 100ft with a front-wheeled walker with no complaints of increased pain over 11/06. 2. Pt. will report decreased apprehension with weight bearing and movement of her R LE. 3. Pt. will be safe and independent with all bed mobility and transfers. 4. Pt. will verbalize and demonstrate understanding of her home exercise program. 5. Pt. will complete the Tinetti Assessment Balance Tool to help assess the pt.'s balance. Physical Therapy Plan: Pt. will be seen 1-2x per day Friday-Friday for inpatient PT. Plan of care will include therapuetic exercise of LE strengthening /stretching ex, gait training, balance training, bed mobility and transfer training, pt. education on safety awareness around the home environment, pt. education on strategies to help decrease apprehension with weight bearing, and the installment of a home exercise program.
--- NOTE | 2017-06-17 15:40 | Occupational Therapy Tx Note ---
Occupational Therapy Tx Note - Treatment Note Tolerated: Good Total Time Spent With Patient: 50 (ADL) Occupational Therapy Treatment Note: Detail (S: Pt fatigued but would like to try showering. O: Supine to sit Indly but slowly. Pt able to sit at EOB and doff shirt, PJ bottoms, briefs and slippers Indly. Sit to stand and amb to shower with 2 wheeled walker Indly. Pt completed showering in standing with use of grab bars, hand held shower and walker placed in shower. She was unable to bend and wash lower legs and feet. Pt sat on commode placed in shower to dry self. Donned shirt Indly. Sit to stand and amb to EOB with 2 wheeled walker Indly. Pt donned briefs and PJ bottoms with feet propped on stool, pt was very fatigued and required short rest breaks. Pt required max assist to start slippers over toes and she was able to pull slippers over heels. Sit to supine with mod assist to lift legs into bed. A: Pt able to shower in standing with assist for lower legs/feet, required commode seat placed in shower to allow sitting to dry self, assist for donning slippers, Ind with donning shirt, pants using modified technique. Pt very fatigued with activity.) Occupational Therapy Problem List: Detail (1. Decreased Ind with functional mobility needed for safe and Ind self cares. 2. Decreased Ind with total body dressing. 3. Decreased Ind with showering 4. Decreased right UE strength and overall endurance needed for safe return home.) Occupational Therapy Goals: 1. Pt will be Ind with bed mobility and transfers from various surfaces to allow Ind with dressing. 2. Pt will be Ind with total body dressing. 3. Pt will be Ind with showering in sitting or standing. 4. Pt will demonstrate improved endurance needed for safe and Ind self cares. Prognosis: Good Occupational Therapy Plan: OT 2-4 times weekly to address self cares, functional mobility, strength and overall endurance training to allow safe and Ind return home.
[2017-06-17] MEDS: NICOTINE 21 MG/24 HOUR PATCH TD SCH (16:24)
[2017-06-17] MEDS: REMOVE PATCH 1 EACH MISC TD SCH (16:27)
[2017-06-17] MEDS: CHOLECALCIFEROL 1,000 UNIT TABLET PO SCH (21:46)
[2017-06-17] MEDS: ATORVASTATIN 20 MG TABLET PO SCH (21:46)
[2017-06-18] MEDS: LEVOTHYROXINE SOD 112 MCG TAB PO SCH (06:34)
[2017-06-18] MEDS: PANTOPRAZOLE SODIUM 40 MG TABLET PO SCH (06:34)
[2017-06-18] MEDS: CALCIUM CARBONATE 500 MG TAB.CHEW PO SCH (09:23)
[2017-06-18] MEDS: APIXABAN 5MG TABLET PO SCH ×2 (09:23→21:17)
[2017-06-18] MEDS: ACETAMINOPHEN 500 MG TABLET PO PRN (09:23)
[2017-06-18] MEDS: ASPIRIN 81 MG TABEC PO SCH (09:23)
[2017-06-18] MEDS: FOLIC ACID 1 MG TABLET PO SCH (09:23)
[2017-06-18] MEDS: METOPROLOL SUCC 25 MG TAB.ER PO SCH (09:23)
[2017-06-18] MEDS: POLYETHYLENE GLY 17 GM PACKET PO SCH ×2 (12:44→21:19)
[2017-06-18] MEDS: SENNOSIDES/DOCUSATE SODIUM UD CAPSULE PO SCH (12:45)
--- NOTE | 2017-06-18 17:13 | Physical Therapy Tx Note ---
Physical Therapy Tx Note - Treatment Note Tolerated: Good Total Time Spent With Patient: 25 Physical Therapy Tx Note: Detail (The patient was in bed when PT arrived the patient was given a leg director of financial aid for bed mobility and was able to acheive supine to sit independently with verbal cueing for proper technique. The patient ambulated to bathroom with supervision for safety only . The patient ambulated without O2 with no shortness of breath. The patient was fatigue after ambulating due to am appt. The patient was left in bed with call light in reach. ) Physical Therapy Problem List: Detail (1. LE Weakness 2. LE ROM deficits 3. Gait impairments 4. Balance impairments 5. LE Pain 6. Apprehension to weight bear 7. Apprehension to move her R LE 8. Requires assistance with bed moblity and transfers) Physical Therapy Goals: 1. Pt. will safely and independently ambulate 100ft with a front-wheeled walker with no complaints of increased pain over 11/06. 2. Pt. will report decreased apprehension with weight bearing and movement of her R LE. 3. Pt. will be safe and independent with all bed mobility and transfers. 4. Pt. will verbalize and demonstrate understanding of her home exercise program. 5. Pt. will complete the Tinetti Assessment Balance Tool to help assess the pt.'s balance. Physical Therapy Plan: Pt. will be seen 1-2x per day Friday-Friday for inpatient PT. Plan of care will include therapuetic exercise of LE strengthening /stretching ex, gait training, balance training, bed mobility and transfer training, pt. education on safety awareness around the home environment, pt. education on strategies to help decrease apprehension with weight bearing, and the installment of a home exercise program.
[2017-06-18] MEDS: NICOTINE 21 MG/24 HOUR PATCH TD SCH (17:32)
[2017-06-18] MEDS: REMOVE PATCH 1 EACH MISC TD SCH (17:35)
[2017-06-18] MEDS: CHOLECALCIFEROL 1,000 UNIT TABLET PO SCH (21:17)
[2017-06-18] MEDS: ATORVASTATIN 20 MG TABLET PO SCH (21:17)
[2017-06-19] MEDS: ACETAMINOPHEN 500 MG TABLET PO PRN ×2 (01:15→16:35)
[2017-06-19] MEDS: LEVOTHYROXINE SOD 112 MCG TAB PO SCH (06:15)
[2017-06-19] MEDS: PANTOPRAZOLE SODIUM 40 MG TABLET PO SCH (06:15)
[2017-06-19] MEDS: SENNOSIDES/DOCUSATE SODIUM UD CAPSULE PO SCH (10:20)
[2017-06-19] MEDS: CALCIUM CARBONATE 500 MG TAB.CHEW PO SCH (10:20)
[2017-06-19] MEDS: ASPIRIN 81 MG TABEC PO SCH (10:20)
[2017-06-19] MEDS: METOPROLOL SUCC 25 MG TAB.ER PO SCH (10:20)
[2017-06-19] MEDS: APIXABAN 5MG TABLET PO SCH ×2 (10:21→21:45)
[2017-06-19] MEDS: POLYETHYLENE GLY 17 GM PACKET PO SCH ×2 (10:21→21:47)
[2017-06-19] MEDS: FOLIC ACID 1 MG TABLET PO SCH (10:21)
[2017-06-19] MEDS: REMOVE PATCH 1 EACH MISC TD SCH (16:34)
[2017-06-19] MEDS: NICOTINE 21 MG/24 HOUR PATCH TD SCH (16:34)
--- NOTE | 2017-06-19 17:40 | Physical Therapy Tx Note ---
Physical Therapy Tx Note - Treatment Note Tolerated: Good (Pt. did not report pain, SOB, or dizziness from start to finish of evaluation. Pt. ambulated 54 feet with front wheeled walker and without O2. Pt. did request O2 when ambulating back to her room, for a total of 54 feet with 2 L O2. Pt. remained at 97% O2 sat throughout tx. Pt. reported PROM helped her hip feel less "stiff".) Total Time Spent With Patient: 60 Physical Therapy Tx Note: Detail (PT provided CGA while pt. ambulated total distance of 108 feet with front wheeled walker and 2L 02 for return trip via nasal cannula. Pt. performed the following AAROM exercises while supine in bed: hip flexion 10x2, hip abduction 10x2, hip adduction 10x2, hip ER 10x2. Pt. performed the following supine exercises: assisted SLR 10x1, hip flexion isometrics 10x, heel slides 10x, quad sets 10x2, ankle pumps 10x2. Pt. was I with sit to stand transfer, but required assistance with lifting her RLE with sit to supine transfer.) Physical Therapy Problem List: Detail (1. LE Weakness 2. LE ROM deficits 3. Gait impairments 4. Balance impairments 5. LE Pain 6. Apprehension to weight bear 7. Apprehension to move her R LE 8. Requires assistance with bed moblity and transfers) Physical Therapy Goals: 1. Pt. will safely and independently ambulate 100ft with a front-wheeled walker with no complaints of increased pain over 11/06. 2. Pt. will report decreased apprehension with weight bearing and movement of her R LE. 3. Pt. will be safe and independent with all bed mobility and transfers. 4. Pt. will verbalize and demonstrate understanding of her home exercise program. 5. Pt. will complete the Tinetti Assessment Balance Tool to help assess the pt.'s balance. Prognosis: Good (Pt. completed all requested exercises with minimal to no discomfort and reported her LE felt better following tx. Pt. verbalized understanding of all exercises shown to her for continued LE strengthening to improve her functionality with bed mobility and transfers. Pt. was left supine with call light availble and nursing was notified of pt.'s status.) Physical Therapy Plan: Pt. will be seen 1-2x per day Friday-Friday for inpatient PT. Plan of care will include therapuetic exercise of LE strengthening /stretching ex, gait training, balance training, bed mobility and transfer training, pt. education on safety awareness around the home environment, pt. education on strategies to help decrease apprehension with weight bearing, and the installment of a home exercise program.
[2017-06-19] MEDS: CHOLECALCIFEROL 1,000 UNIT TABLET PO SCH (21:45)
[2017-06-19] MEDS: ATORVASTATIN 20 MG TABLET PO SCH (21:45)
[2017-06-20] MEDS: ACETAMINOPHEN 500 MG TABLET PO PRN ×2 (02:20→15:50)
[2017-06-20] MEDS: LEVOTHYROXINE SOD 112 MCG TAB PO SCH (06:06)
[2017-06-20] MEDS: PANTOPRAZOLE SODIUM 40 MG TABLET PO SCH (06:06)
--- NOTE | 2017-06-20 08:04 | Occupational Therapy Tx Note ---
Occupational Therapy Tx Note - Treatment Note Tolerated: Good Total Time Spent With Patient: 35 (ADL) Occupational Therapy Treatment Note: Detail (S: Pt up at EOB, feeling good today. O: Sit to stand and amb to toilet with 2 wheeled walker Indly. Completed toileting Indly. Amb to sink and completed sponge bathing in sitting Indly. Able to doff PJ bottoms, slippers and t-shirt Indly with modified technique. Donned underpants Ind with verbal cues for modified technique and Ind with donning shirt. Completed grooming/hygiene Indly. Sit to stand and amb to chair with 2 wheeled walker Indly. Donned PJ bottoms, socks and velcro closure shoes Indly. Pt with mild shortness of breath but significantly improved. A: Pt is Ind with total body dressing using modified dressing techniques. Ind with sponge bathing, grooming/hygiene and toileting. Endurance improving for ADLs.) Occupational Therapy Problem List: Detail (1. Decreased Ind with functional mobility needed for safe and Ind self cares. 2. Decreased Ind with total body dressing. 3. Decreased Ind with showering 4. Decreased right UE strength and overall endurance needed for safe return home.) Occupational Therapy Goals: 1. Pt will be Ind with bed mobility and transfers from various surfaces to allow Ind with dressing. 2. Pt will be Ind with total body dressing. 3. Pt will be Ind with showering in sitting or standing. 4. Pt will demonstrate improved endurance needed for safe and Ind self cares. Prognosis: Good Occupational Therapy Plan: OT 2-4 times weekly to address self cares, functional mobility, strength and overall endurance training to allow safe and Ind return home.
[2017-06-20] MEDS: CALCIUM CARBONATE 500 MG TAB.CHEW PO SCH (10:23)
[2017-06-20] MEDS: FOLIC ACID 1 MG TABLET PO SCH (10:24)
[2017-06-20] MEDS: SENNOSIDES/DOCUSATE SODIUM UD CAPSULE PO SCH (10:24)
[2017-06-20] MEDS: ASPIRIN 81 MG TABEC PO SCH (10:24)
[2017-06-20] MEDS: APIXABAN 5MG TABLET PO SCH ×2 (10:25→21:20)
[2017-06-20] MEDS: POLYETHYLENE GLY 17 GM PACKET PO SCH ×2 (10:25→21:16)
[2017-06-20] MEDS: METOPROLOL SUCC 25 MG TAB.ER PO SCH (10:25)
--- NOTE | 2017-06-20 16:01 | Physical Therapy Tx Note ---
Physical Therapy Tx Note - Treatment Note Tolerated: Good Total Time Spent With Patient: 35 Physical Therapy Tx Note: Detail (Patient states right hip sore. Patient was supine in bed upon [facility] arrival. Patient transferred supine to sit independently. Patient transferred sit to and from stand SBA x1. Patient ambulated 13 feet x2 with wheeled walker SBA x1. Patient transferred sit to and from stand SBA x1. Patient ambulated 110 feet with wheeled walker SBA x1. Patient performed the following exercises seated in chair x10 reps each: heel raises, toe raises, hamstring curls with yellow theraband, heel slides, hip abduction with yellow theraband, isometric hip adduction, assisted hip flexion, and LAQ with assist. Patient transferred sit to and from stand SBA x1. Patient transferred sit to supine min assist x1 to lift right LE on bed. Patient tolerated treatment well. Patient displays some shortness of breath with ambulation and exercises. Patient reports tired after treatment. Patient was left supine in bed with call light within reach.) Physical Therapy Problem List: Detail (1. LE Weakness 2. LE ROM deficits 3. Gait impairments 4. Balance impairments 5. LE Pain 6. Apprehension to weight bear 7. Apprehension to move her R LE 8. Requires assistance with bed moblity and transfers) Physical Therapy Goals: 1. Pt. will safely and independently ambulate 100ft with a front-wheeled walker with no complaints of increased pain over 11/06. 2. Pt. will report decreased apprehension with weight bearing and movement of her R LE. 3. Pt. will be safe and independent with all bed mobility and transfers. 4. Pt. will verbalize and demonstrate understanding of her home exercise program. 5. Pt. will complete the Tinetti Assessment Balance Tool to help assess the pt.'s balance. Prognosis: Good Physical Therapy Plan: Pt. will be seen 1-2x per day Friday-Friday for inpatient PT. Plan of care will include therapuetic exercise of LE strengthening /stretching ex, gait training, balance training, bed mobility and transfer training, pt. education on safety awareness around the home environment, pt. education on strategies to help decrease apprehension with weight bearing, and the installment of a home exercise program.
[2017-06-20] MEDS: NICOTINE 21 MG/24 HOUR PATCH TD SCH (17:48)
[2017-06-20] MEDS: REMOVE PATCH 1 EACH MISC TD SCH (17:49)
[2017-06-20] MEDS: CHOLECALCIFEROL 1,000 UNIT TABLET PO SCH (21:20)
[2017-06-20] MEDS: ATORVASTATIN 20 MG TABLET PO SCH (21:20)
[2017-06-21] MEDS: PANTOPRAZOLE SODIUM 40 MG TABLET PO SCH (06:17)
[2017-06-21] MEDS: LEVOTHYROXINE SOD 112 MCG TAB PO SCH (06:17)
[2017-06-21] MEDS: ASPIRIN 81 MG TABEC PO SCH (10:09)
[2017-06-21] MEDS: APIXABAN 5MG TABLET PO SCH ×2 (10:09→21:06)
[2017-06-21] MEDS: METOPROLOL SUCC 25 MG TAB.ER PO SCH (10:10)
[2017-06-21] MEDS: SENNOSIDES/DOCUSATE SODIUM UD CAPSULE PO SCH (10:10)
[2017-06-21] MEDS: POLYETHYLENE GLY 17 GM PACKET PO SCH ×2 (10:10→21:06)
[2017-06-21] MEDS: CALCIUM CARBONATE 500 MG TAB.CHEW PO SCH (10:10)
[2017-06-21] MEDS: FOLIC ACID 1 MG TABLET PO SCH (10:10)
[2017-06-21] MEDS: NICOTINE 21 MG/24 HOUR PATCH TD SCH (16:20)
[2017-06-21] MEDS: REMOVE PATCH 1 EACH MISC TD SCH (16:20)
[2017-06-21] MEDS: ATORVASTATIN 20 MG TABLET PO SCH (21:06)
[2017-06-21] MEDS: CHOLECALCIFEROL 1,000 UNIT TABLET PO SCH (21:06)
[2017-06-22] MEDS: ACETAMINOPHEN 500 MG TABLET PO PRN ×3 (00:40→21:25)
[2017-06-22] MEDS: PANTOPRAZOLE SODIUM 40 MG TABLET PO SCH (07:47)
[2017-06-22] MEDS: LEVOTHYROXINE SOD 112 MCG TAB PO SCH (07:47)
[2017-06-22] MEDS: APIXABAN 5MG TABLET PO SCH ×2 (10:37→21:25)
[2017-06-22] MEDS: POLYETHYLENE GLY 17 GM PACKET PO SCH ×2 (10:37→21:25)
[2017-06-22] MEDS: FOLIC ACID 1 MG TABLET PO SCH (10:37)
[2017-06-22] MEDS: ASPIRIN 81 MG TABEC PO SCH (10:37)
[2017-06-22] MEDS: SENNOSIDES/DOCUSATE SODIUM UD CAPSULE PO SCH (10:38)
[2017-06-22] MEDS: METOPROLOL SUCC 25 MG TAB.ER PO SCH (10:38)
[2017-06-22] MEDS: CALCIUM CARBONATE 500 MG TAB.CHEW PO SCH (10:38)
--- NOTE | 2017-06-22 12:43 | Physician Progress Note ---
Subjective - Date Date of Progress Note: 06/22/17 - Admitting Diagnosis Diagnosis: S/P internal fixation intertrochanteric femur fx - Subjective Nursing Care Plan Problem List Activity Intolerance (Swing Bed) Start: 06/07/17 12: 09 Freq: Status: Active Protocol: Created 06/07/17 12:09 SS (Rec: 06/07/17 12:09 SS [id number]) Knowledge Deficit (Swing Bed) Start: 06/07/17 12: 09 Freq: Status: Active Protocol: Created 06/07/17 12:09 SS (Rec: 06/07/17 12:09 SS [id number]) Pain (Swing Bed) Start: 06/07/17 12: 09 Freq: Status: Active Protocol: Created 06/07/17 12:09 SS (Rec: 06/07/17 12:09 SS [id number]) Risk For Falls (Swing Bed) Start: 06/10/17 08: 35 Freq: Status: Complete Protocol: Created 06/10/17 08:35 MMT (Rec: 06/10/17 08:35 MMT [id number]) Edit Status 06/14/17 17:13 SAF (Rec: 06/14/17 17:13 SAF [id number]) Active=>Complete Skin Integrity, Impaired (Swing Bed) Start: 06/10/17 08: 34 Freq: Status: Active Protocol: Created 06/10/17 08:34 MMT (Rec: 06/10/17 08:34 MMT [id number]) Subjective: 06/22/17- Patient states she is doing well today. She says her leg continues to ache but that the tylenol has been controlling her pain. She has been up ambulating with her walker to the bathroom independently and dressing independently. She says her appetite has been good and she denies any chest pain , headache, abdominal pain. General - Cognitive Patterns Speech: Normal Thought Process: Intact Thought Content: Normal - Communication Select best description of speech pattern: Clear Speech Ability to express ideas and wants: Understood Understanding verbal content: Understands - Mood and Behavior Patterns Appearance: Well Groomed Mood: Normal Attitude: Cooperative Motor Activity: Calm Affect: Appropriate - Physical Functioning Activity Level: Up with assist x1 Turning: Self ad korina ROM Ability: Moves all extremities Assistive Devices: Walker Activity Level Comment: USING HOSPITAL WALKER. [ End ] Ambulation Ability: Needs Assist Bed Mobility: Needs Assist Transfer Ability: Needs Assist Bathing Ability: Independent Personal Hygiene: Independent Dressing Ability: Needs Assist Eating (Feeding) Ability: Independent Toileting Ability: Needs Assist Administer Own Medication: Independent Care Ability Comment: Pt still needs assistance with R leg such as putting breif around foot, lifting off bed when transferring, putting pants on. - Continence Bowel Pattern: Normal for Patient Bladder Pattern: Normal Meds/Allergies - Allergies Allergies Allergy/AdvReac Type Severity Reaction Status Date / Time No Known Drug Allergies Allergy Verified 11/25/15 16:29 - Active Medications Current Medications Acetaminophen (Tylenol 500mg Tab) 1,000 mg PO Q6H PRN PRN Reason: Pain - General Last Admin: 06/22/17 00:40 Dose: 1,000 mg Hydrocodone Bitart/Acetaminophen ([place] 10mg/325mg) 1 each PO Q6H PRN PRN Reason: Pain - Severe (8-10) Last Admin: 06/13/17 08:08 Dose: 1 each Apixaban (Eliquis) 5 mg PO BID [facility] Last Admin: 06/22/17 10:37 Dose: 5 mg Aspirin (Ecotrin (Ec)) 81 mg PO DAILY [facility] Last Admin: 06/22/17 10:37 Dose: 81 mg Atorvastatin Calcium (Lipitor) 20 mg PO QHS [facility] Last Admin: 06/21/17 21:06 Dose: 20 mg Calcium Carbonate/Glycine (Tums) 1,000 mg PO DAILY [facility] Last Admin: 06/22/17 10:38 Dose: 1,000 mg Folic Acid () 1 mg PO DAILY [facility] Last Admin: 06/22/17 10:37 Dose: 1 mg Levothyroxine Sodium (Synthroid) 112 mcg PO DAILYTHY [facility] Last Admin: 06/22/17 07:47 Dose: 112 mcg Metoprolol Succinate (Toprol Xl) 25 mg PO DAILY [facility] Last Admin: 06/22/17 10:38 Dose: 25 mg Miscellaneous (Remove Patch) 1 each TD Q24H [facility] Last Admin: 06/21/17 16:20 Dose: 1 each Nicotine (Nicotine 21mg) 1 patch TD Q24H [facility] Last Admin: 06/21/17 16:20 Dose: 1 patch Pantoprazole Sodium (Protonix) 40 mg PO DAILYAC [facility] Last Admin: 06/22/17 07:47 Dose: 40 mg Polyethylene Glycol (Miralax) 17 gm PO BID [facility] Last Admin: 06/22/17 10:37 Dose: Not Given Senna/Docusate Sodium (Senna Plus) 1 each PO DAILY [facility] Last Admin: 06/22/17 10:38 Dose: 1 each Vitamin D (Vitamin D3) 1,000 unit PO QHS [facility] Last Admin: 06/21/17 21:06 Dose: 1,000 unit Objective - Vital Signs Vital Signs: Vital Signs - Last 24 Hrs Temp Pulse Resp BP Pulse Ox 06/22/17 08:00 98 F 81 16 99/56 96 06/21/17 20:00 98.4 F 79 18 122/69 93 L - General General Appearance: Alert, Oriented x3, Cooperative, No acute distress Limitations: No limitations - Head Head exam: Atraumatic, Normocephalic - Eye Eye exam: Normal appearance, PERRL - ENT ENT exam: Normal exam - Neck Neck exam: Normal inspection, Full ROM. negative: Tenderness - Respiratory Respiratory exam: Decreased breath sounds (t/o) - Cardiovascular Cardiovascular Exam: Regular rate, Normal rhythm, Systolic murmur (chronic) Peripheral Pulses: 2+: Radial (R), Radial (L), Dorsalis Pedis (R), Dorsalis Pedis (L) - GI/Abdominal GI/Abdominal exam: Soft, Normal bowel sounds - Rectal Rectal exam: Deferred - exam: Deferred - Extremities Extremities exam: Normal inspection, Normal capillary refill, Other (RLE neurovascularly intact). negative: Calf tenderness, Pedal edema - Back Back exam: Reports: Normal inspection - Neurological Neurological exam: Alert, CN II-XII intact, Oriented X3 - Psychiatric Psychiatric exam: Anxious - Skin Skin exam: Intact, Normal color H&P Results - Labs Result Diagrams: 06/17/17 07:49 06/17/17 07:49 Discharge Potential - Discharge Needs Community Services Used Prior to Admission: None Patient Discharge Plan Description: Return Home Discharge Needs Comment: Has used [facility] in past. Would prefer no home healthcare, but open to it if recommended and would like [facility] if so. Plan - Swing Bed Certification Initial Certification Due: 06/07/17 14 Day Re-Cert Due: 06/21/17 44 Day Re-Cert Due: 07/21/17 74 Day Re-Cert Due: 08/20/17 - Detailed Diagnosis and Plan (1) Physical deconditioning Current Visit: Yes Status: Acute Base Code: R53.81 - OTHER [facility] Comment : 06/22/17- improving. she is ambulating with walker independently. -continue pt/ot m-f. -planning on discharge on 06/26 with continued therapy through home health set up by [facility]. (2) Intertrochanteric fracture of right femur Current Visit: Yes Status: Acute Base Code: S72.141A - DISPLACED INTERTROCHANTERIC FRACTURE OF RIGHT FEMUR, INIT Comment: 06/22/17- s/p mechanical fall 06/03/17 and internal fixation at [facility] on 06/05 - dressing removed on 06/12 -pain controlled with tylenol - pt continuing PT/OT m-f with improvement. -had follow up with Dr. Bolivar on 06/18 and has routine healing. will see him back in 2 more weeks
--- NOTE | 2017-06-22 12:44 | Swing Bed Certification/Recert ---
Initial Certification Due: 06/07/17 14 Day Re-Cert Due: 06/21/17 44 Day Re-Cert Due: 07/21/17 74 Day Re-Cert Due: 08/20/17 CERTIFICATION 3 CERTIFICATION OF PATIENT ADMISSION Required at time of admission. Due: 06/07/17 I certify that SNF services are required to be given on an inpatient basis because of the above named patient's need for custodial care on a continuing basis for the condition(s) for which he/she was receiving inpatient hospital services prior to his/her transfer to the SNF. The patient's current needs for skilled care includes: [] Blanca Briscoe 06/22/17 I certify that SNF services are required to be given on an inpatient basis because of the above named patient's need for custodial care on a continuing basis for the condition(s) for which he/she was receiving inpatient hospital services prior to his/her transfer to the SNF. The patient's current needs for skilled care includes: [physical deconditioning s/p fall and fracture of the right femur, she continues to need aid with ambulation of longer distances] Blanca Briscoe 06/22/17
[2017-06-22] MEDS: REMOVE PATCH 1 EACH MISC TD SCH (16:47)
[2017-06-22] MEDS: NICOTINE 21 MG/24 HOUR PATCH TD SCH (16:47)
[2017-06-22] MEDS: CHOLECALCIFEROL 1,000 UNIT TABLET PO SCH (21:24)
[2017-06-22] MEDS: ATORVASTATIN 20 MG TABLET PO SCH (21:25)
[2017-06-23] MEDS: PANTOPRAZOLE SODIUM 40 MG TABLET PO SCH (06:48)
[2017-06-23] MEDS: LEVOTHYROXINE SOD 112 MCG TAB PO SCH (06:49)
[2017-06-23] MEDS: CALCIUM CARBONATE 500 MG TAB.CHEW PO SCH (09:39)
[2017-06-23] MEDS: ASPIRIN 81 MG TABEC PO SCH (09:39)
[2017-06-23] MEDS: POLYETHYLENE GLY 17 GM PACKET PO SCH ×2 (09:39→23:12)
[2017-06-23] MEDS: SENNOSIDES/DOCUSATE SODIUM UD CAPSULE PO SCH (09:40)
[2017-06-23] MEDS: APIXABAN 5MG TABLET PO SCH ×2 (09:40→23:07)
[2017-06-23] MEDS: METOPROLOL SUCC 25 MG TAB.ER PO SCH (09:40)
[2017-06-23] MEDS: FOLIC ACID 1 MG TABLET PO SCH (09:40)
[2017-06-23] MEDS: NICOTINE 21 MG/24 HOUR PATCH TD SCH (16:09)
[2017-06-23] MEDS: ACETAMINOPHEN 500 MG TABLET PO PRN ×2 (16:12→23:07)
[2017-06-23] MEDS: REMOVE PATCH 1 EACH MISC TD SCH (18:17)
[2017-06-23] MEDS: CHOLECALCIFEROL 1,000 UNIT TABLET PO SCH (23:07)
[2017-06-23] MEDS: ATORVASTATIN 20 MG TABLET PO SCH (23:07)
[2017-06-24] MEDS: LEVOTHYROXINE SOD 112 MCG TAB PO SCH (07:19)
[2017-06-24] MEDS: PANTOPRAZOLE SODIUM 40 MG TABLET PO SCH (07:19)
--- NOTE | 2017-06-24 07:56 | Occupational Therapy Tx Note ---
Occupational Therapy Tx Note - Treatment Note Tolerated: Good Total Time Spent With Patient: 30 (ADL) Occupational Therapy Treatment Note: Detail (S: Pt awake and feeling stronger each day. O: Supine to sit Indly. Amb to bathroom with 2 wheeled walker and completed toileting Indly on raised commode. Doffed PJ bottoms, underpants, shirt and slippers Indly in sitting. Amb to shower and completed showering in standing with walker in shower and hand held shower Indly. Pt dried self Indly in standing. Amb back to EOB with 2 wheeled walker Indly. Donned undershirt, blouse, underpants, PJ bottoms and slippers Indly. Brushed hair Indly. Sit to supine Indly using side bed rail to prop feet on during transfer. A: No shortness of breath observed with activity, pain 2-3/10 per patient with activity, Ind with showering and dressing.) Occupational Therapy Problem List: Detail (1. Decreased Ind with functional mobility needed for safe and Ind self cares. 2. Decreased Ind with total body dressing. 3. Decreased Ind with showering 4. Decreased right UE strength and overall endurance needed for safe return home.) Occupational Therapy Goals: 1. Pt will be Ind with bed mobility and transfers from various surfaces to allow Ind with dressing. 2. Pt will be Ind with total body dressing. 3. Pt will be Ind with showering in sitting or standing. 4. Pt will demonstrate improved endurance needed for safe and Ind self cares. Prognosis: Good Occupational Therapy Plan: OT 2-4 times weekly to address self cares, functional mobility, strength and overall endurance training to allow safe and Ind return home.
[2017-06-24] MEDS: CALCIUM CARBONATE 500 MG TAB.CHEW PO SCH (09:38)
[2017-06-24] MEDS: ACETAMINOPHEN 500 MG TABLET PO PRN ×2 (09:38→21:22)
[2017-06-24] MEDS: FOLIC ACID 1 MG TABLET PO SCH (09:38)
[2017-06-24] MEDS: POLYETHYLENE GLY 17 GM PACKET PO SCH ×2 (09:39→21:21)
[2017-06-24] MEDS: APIXABAN 5MG TABLET PO SCH ×2 (09:39→21:22)
[2017-06-24] MEDS: ASPIRIN 81 MG TABEC PO SCH (09:39)
[2017-06-24] MEDS: SENNOSIDES/DOCUSATE SODIUM UD CAPSULE PO SCH (09:39)
[2017-06-24] MEDS: METOPROLOL SUCC 25 MG TAB.ER PO SCH (09:39)
--- NOTE | 2017-06-24 13:38 | Physical Therapy Tx Note ---
Physical Therapy Tx Note - Treatment Note Tolerated: Good (Patient doing quite well today and anticipating discharge to home where lives with daughter and daughter's tomorrow. Willing to do some exercises but did not want to try stairs today. Patient able to work on LE exercises supine on bed, LE resistive exercises seated and UE exercises, gait with FWW, squats and bed mobility independentlyl.) Total Time Spent With Patient: 30 Physical Therapy Tx Note: Detail (Patient seen in room, worked on exercises supine for LES with heel slides, SLR, bridges for 15 reps each, supine to sit with UE assist for moving right LE off bed independently then sit to stand with FWW and independent and safe, ambulated with FWW about 60 feet past nurses ' station and back to room with some cues to not hike shoulders. Total 120 feet. Worked on LE exercises with resistance seated for hips, knees and ankles then worked on squats with patient holding therapist's arms and squats over bed times 6 reps. Patient also worked resistive exercises for UES seated. Patient able to get back into bed independently and pushed self up in bed independently. ) Physical Therapy Problem List: Detail (1. LE Weakness 2. LE ROM deficits 3. Gait impairments 4. Balance impairments 5. LE Pain 6. Apprehension to weight bear 7. Apprehension to move her R LE 8. Requires assistance with bed moblity and transfers) Physical Therapy Goals: 1. Pt. will safely and independently ambulate 100ft with a front-wheeled walker with no complaints of increased pain over 11/06. 2. Pt. will report decreased apprehension with weight bearing and movement of her R LE. 3. Pt. will be safe and independent with all bed mobility and transfers. 4. Pt. will verbalize and demonstrate understanding of her home exercise program. 5. Pt. will complete the Tinetti Assessment Balance Tool to help assess the pt.'s balance. Prognosis: Good (Patient doing extremely well with therapy and plan is to be discharged home tomorrow. Has nearly met all goals set for her.) Physical Therapy Plan: Pt. will be seen 1-2x per day Friday-Friday for inpatient PT. Plan of care will include therapuetic exercise of LE strengthening /stretching ex, gait training, balance training, bed mobility and transfer training, pt. education on safety awareness around the home environment, pt. education on strategies to help decrease apprehension with weight bearing, and the installment of a home exercise program.
[2017-06-24] MEDS: NICOTINE 21 MG/24 HOUR PATCH TD SCH (17:37)
[2017-06-24] MEDS: REMOVE PATCH 1 EACH MISC TD SCH (17:37)
[2017-06-24] MEDS: CHOLECALCIFEROL 1,000 UNIT TABLET PO SCH (21:22)
[2017-06-24] MEDS: ATORVASTATIN 20 MG TABLET PO SCH (21:22)
[2017-06-24] MEDS ORDERED: MONTELUKAST SODIUM 10MG TABLET PO SCH (22:00)
[2017-06-25] MEDS: PANTOPRAZOLE SODIUM 40 MG TABLET PO SCH (06:17)
[2017-06-25] MEDS: LEVOTHYROXINE SOD 112 MCG TAB PO SCH (06:17)
--- NOTE | 2017-06-25 08:57 | Discharge Summary ---
Providers Date of admission: 06/07/17 12:01 Expected Date of Discharge: 06/25/17 Attending physician: Rahat James Primary care physician: Rahat James Physical Exam - Vital Signs Vital Signs: Vital Signs - Last 24 Hrs Temp Pulse Pulse Resp BP BP Pulse Ox 06/24/17 21:05 79 91 L 06/24/17 20:00 98.6 F 77 16 139/68 93 L 06/24/17 10:04 99.1 F 124/64 - General General Appearance: Alert, Oriented x3, Cooperative, No acute distress Limitations: No limitations - Head Head exam: Atraumatic, Normocephalic - Eye Eye exam: Normal appearance, PERRL - ENT ENT exam: Normal exam - Neck Neck exam: Normal inspection, Full ROM. negative: Tenderness - Respiratory Respiratory exam: Decreased breath sounds (t/o) - Cardiovascular Cardiovascular Exam: Regular rate, Normal rhythm, Systolic murmur (chronic) Peripheral Pulses: 2+: Radial (R), Radial (L), Dorsalis Pedis (R), Dorsalis Pedis (L) - GI/Abdominal GI/Abdominal exam: Soft, Normal bowel sounds - Rectal Rectal exam: Deferred - exam: Deferred - Extremities Extremities exam: Normal inspection, Normal capillary refill, Other (RLE neurovascularly intact). negative: Calf tenderness, Pedal edema - Back Back exam: Reports: Normal inspection - Neurological Neurological exam: Alert, Oriented X3 - Psychiatric Psychiatric exam: Anxious - Skin Skin exam: Intact (healed surgical incision on left hip, no dressing, no redness ), Normal color Hospitalization - Hospitalization Admission Diagnosis: S/P internal fixation intertrochanteric femur fx - Hospitalization Course Disposition: Home, Self-Care Hospital Course: 81 y/o admitted for deconditioning after tripping over rug at home and falling sustaining right intertrochanteric femur fx on 06/03/17 s/p right femur internal fixation 06/05/17. At baseline she is to use a cane to assist with ambulation, she was not using cane at time of trip and fall. She is an every day smoker using an nicotine patch currently. Does have remote history of colon cancer s/p resection she reports about a year ago with 1 left upper lung lesion considered metastatic in nature that was treated with 4 rounds of radiation. She reports is over due for her oncology follow up. Other pertinent medical history includes a-fib on chronic oral anticoagulation therapy, hypothyroidism, lupus, emphysema with PRN oxygen use at home, dyslipidemia. Post operatively had significant pain leading to poor mobility, she was very hesitant to get out of bed, had a grijalva placed at that time to assist with urinary output. One day after arrival to [facility] grijalva was DC'd, [place] increased for pain control, she was assisted out of bed several times by staff to sit in chair periodically while awaiting PT/OT consult. Follow up Dr Sandra 2-4 weeks after surgery. Abnormal Labs: Abnormal Lab Results 06/13/17 06/13/17 06/17/17 Range/Units 06:30 06:30 07:49 RBC 2.41 L 2.25 L (3.80-5.40) M/uL Hgb 8.4 L 8.1 L (11.6-16.0) gm/dl Hct 27.7 L 26.4 L (35.0-47.0) % MCV 114.9 H 117.3 H (81-97) fl MCH 34.8 H 36.0 H (27-33) pg MCHC 30.3 L 30.7 L (32-36) g/dl RDW 15.0 H (11.5-14.5) % Potassium 4.7 H (3.4-4.5) mmol/L Calcium 8.6 L (8.8-10.2) mg/dL 06/17/17 Range/Units 07:49 RBC (3.80-5.40) M/uL Hgb (11.6-16.0) gm/dl Hct (35.0-47.0) % MCV (81-97) fl MCH (27-33) pg MCHC (32-36) g/dl RDW (11.5-14.5) % Potassium 4.9 H (3.4-4.5) mmol/L Calcium (8.8-10.2) mg/dL Condition at Discharge: (2) Stable Discharge Medications - Discharge Medications Home Medications: Ambulatory Orders Levothyroxine Sodium [Levoxyl] 112 mcg PO DAILY 11/25/15 [Last Taken 11/25/15] Lisinopril [Zestril] 20 mg PO DAILY 11/25/15 [Last Taken 11/25/15] Discharge Plan - Discharge Instructions Activity at Discharge: Ambulate Only With Your Walker Diet at Discharge: Regular Diet Instructions: ORIF of Hip Fracture (DC) Additional Instructions: 2 Activity: TOLERATED, USE WALKER 2 Diet: TOLERATED 2 Consults: [] 2 Follow Up: [Dr. Sandra- orthopedics] 2 Dressing/Wound Care: (Type) (Change) 2 Additional: [] You have been set up with [facility] for continued physical and occupational therapy at home. A nurse will contact you within 48 hours of returning home to schedule a time to come out. You can reach [facility] at . RESUME HOME MEDICATIONS Quality Measures - Quality Measures Quality Measures: Atrial Fibrillation & Atrial Flutter: Chronic Anticoagulation Therapy, Advance Directives, Documentation of Current Medications in Medical Record, Elder Maltreatment Screen and Follow-Up Plan, Screening for High Blood Pressure and F/U Documented - Current Medications Quality Measure: Measure #130: Documentation of Current Medications Documentation of Current Medications: <Current Medications Documented/Reviewed> [G8427] - Blood Pressure Screening Quality Measure: Screening for High Blood Pressure and Follow-Up Documented Does Patient Have Any of the Following: Active Dx of HTN Blood Pressure Classification: Pre-Hypertensive BP Reading Systolic Measurement: 124 Diastolic Measurement: 64 Screening for High Blood Pressure: Patient Exclusion, Hx of HTN [G9744] - Atrial Fibrillation and Atrial Flutter Quality Measure: Atrial Fibrillation & Atrial Flutter: Chronic Anticoagulation Therapy Does Patient Have Any of the Following: No CHADS2 Risk Stratification: Age 75 or Greater, Hypertension Risk Stratification Summary: One or more high risk factors OR more than one moderate risk factor exists. [G8972] - Advance Directives Quality Measure: Measure #47: Care Plan Advance Directives Established: No Advance Directives Information Provided To Patient: Yes Advance Directives on File: No Living Will: No Power of Clin Asst: Yes - Elder Abuse Suspicion Index Screening: Elder Abuse Suspicion Index Screening Rely on people for bathing, dressing, shopping, banking, etc: No Prevented from getting food, clothes, medication, etc: No Made to feel shamed or threatened by someone: No Forced to sign papers or use money against will: No Feel afraid, touched in ways not wanted or hurt physically: No Poor eye contact, withdrawn, malnourished, cuts or bruises: No Screening Result: Negative result EASI Reference Information: Dustin MAZA, Ricardo C, Bekah D, Waldemar Yoon.Development and validation of a tool to assist physicians identification of elder abuse: The Elder Abuse Suspicion Index (EASI ). Journal of Elder Abuse and Neglect, 2008; 20 (3): 276-300. - Elder Maltreatment Screen Quality Measures: Elder Maltreatment Screen and Follow-Up Plan Elder Maltreatment Screen: <Negative, No Follow-Up Plan Required> [G9620]
[2017-06-25] MEDS: APIXABAN 5MG TABLET PO SCH (10:03)
[2017-06-25] MEDS: FOLIC ACID 1 MG TABLET PO SCH (10:03)
[2017-06-25] MEDS: ASPIRIN 81 MG TABEC PO SCH (10:03)
[2017-06-25] MEDS: SENNOSIDES/DOCUSATE SODIUM UD CAPSULE PO SCH (10:04)
[2017-06-25] MEDS: POLYETHYLENE GLY 17 GM PACKET PO SCH (10:04)
[2017-06-25] MEDS: METOPROLOL SUCC 25 MG TAB.ER PO SCH (10:04)
[2017-06-25] MEDS: CALCIUM CARBONATE 500 MG TAB.CHEW PO SCH (10:04)
[2017-06-25] MEDS: ACETAMINOPHEN 500 MG TABLET PO PRN (10:05)
--- NOTE | 2017-06-25 10:48 | Rehab Discharge Summary ---
Patient Information - Patient Information Diagnosis: S/P Internal Fixation Intertrochanteric Femur Fracture Ordered Treatment: OT Evaluate and Treat Surgery: Yes (R hip stabilization w/Cephalomedullary Device ) Date of Surgery: 06/05/17 Past Medical/Surgical Hx: PAST MEDICAL/SURGICAL HISTORY Past Surgical History Biopsy of lung tissue knee surgery macular hole surgery PMH - Respiratory Hx Respiratory Disorders Yes Comment: emphysema, possible lung CA PMH - Cardiovascular Hx Cardiovascular Disorders Yes Hx Hypertension Yes Hx Irregular Heartbeat Yes: a-fib Comment: aortic stent PMH - Neuro Hx Neurological Disorders Yes Hx Dizziness Yes Hx Seizures No PMH - GI Hx Gastrointestinal Disorders No Hx Gastroesophageal Reflux Yes PMH - Hx Genitourinary Disorders Yes Hx Bladder Problem Yes: bladder stones Hx Kidney Stones Yes PMH - Endocrine Hx Endocrine Disorders Yes Hx Thyroid Disease Yes PMH - Musculoskeletal Hx Musculoskeletal Disorders Yes Hx Arthritis Yes Comment: lupus PMH - Psych Hx Psychiatric Problems Yes Hx Anxiety Yes PMH - Hematology/Oncology Hx Hematology/Oncology Yes Disorders Hx Anemia Yes Hx Cancer Yes: lung, colon Hx Chemotherapy No Hx Radiation Therapy Yes Comment: colectomy Social History: Detail (Pt. reports she lives in a single story home with her daughter and son-in-law. The pt. reports she has no stairs to ascend or descend , but does have a ramp that leads into the house. The pt. reports she has grab bars in her shower and by the toilet. The pt. uses a commode and has a walk in bathtub. The pt. reports she just has a small step to get into the tub, but that her son-in-law cut out a portion of the tub to make it easier to get in and out of the tub. The pt. reports she does not have a shower chair, and would not like to get one because she doesn't feel she would be able to have the strength to stand from the chair. The pt. reports she has a front wheeled walker , a single point cane, and a 3-point cane at home, but she does not use them because she feels they just get in her way. The pt. has oxygen at home, but does not currently use it. Before having the fracture, the patient was able to wash the dishes and do her laundry, and did cook for herself from time to time. The pt.'s daughter and son-in-law will be able to help as necessary.) Precautions: [place], Fall, Other (WBAT Right LE) Objective Data - Pain Pain Present: No - Mental Status Patient Orientation: Oriented x3 - Visual Perception Appears within normal limits for therapeutic activities - ROM Not within normal limits (Nolan UE AROM WNL with the exception of right shoulder flexion which is limited due to premorbid injury.) - Strength/Tone Not within normal limits (Nolan UE MMT 4+/5 with exception of right shoulder flexion which is 3+/5 within AROM limitations.) - Coordination Appears within normal limits for therapeutic activities - Bed Mobility Independent (Ind with supine to sit and sit to supine.) - Transfers Independent (Ind with sit to stand from EOB, chair, commode heights.) - Balance Balance Sitting: Good Balance Standing: Good - Sensation Intact - Gait Detail (Pt ambulating in room with 2 wheeled walker Indly.) - ADL's/IADL's Detail (Pt Ind with showering in standing using grab bars and hand held shower and walker placed in shower. She is Ind with total body dressing, grooming and hygiene tasks.) Therapy Assessment - Therapy Assessment Detail (Pt is safe and Ind with showering, dressing and functional mobility needed for ADLs. Pt demonstrates significantly improved endurance and activity tolerance.) Problem List - Problem List Physical Therapy Problem List: Detail (1. LE Weakness 2. LE ROM deficits 3. Gait impairments 4. Balance impairments 5. LE Pain 6. Apprehension to weight bear 7. Apprehension to move her R LE 8. Requires assistance with bed moblity and transfers) Occupational Therapy Problem List: Detail (1. Decreased Ind with functional mobility needed for safe and Ind self cares. 2. Decreased Ind with total body dressing. 3. Decreased Ind with showering 4. Decreased right UE strength and overall endurance needed for safe return home.) Goals - Goals Physical Therapy Goals: 1. Pt. will safely and independently ambulate 100ft with a front-wheeled walker with no complaints of increased pain over 11/06. 2. Pt. will report decreased apprehension with weight bearing and movement of her R LE. 3. Pt. will be safe and independent with all bed mobility and transfers. 4. Pt. will verbalize and demonstrate understanding of her home exercise program. 5. Pt. will complete the Tinetti Assessment Balance Tool to help assess the pt.'s balance. Occupational Therapy Goals: Goals Met: 1. Pt will be Ind with bed mobility and transfers from various surfaces to allow Ind with dressing. 2. Pt will be Ind with total body dressing. 3. Pt will be Ind with showering in sitting or standing. 4. Pt will demonstrate improved endurance needed for safe and Ind self cares. Prognosis - Prognosis Good Plan - Plan Physical Therapy Plan: Pt. will be seen 1-2x per day Friday-Friday for inpatient PT. Plan of care will include therapuetic exercise of LE strengthening /stretching ex, gait training, balance training, bed mobility and transfer training, pt. education on safety awareness around the home environment, pt. education on strategies to help decrease apprehension with weight bearing, and the installment of a home exercise program. Occupational Therapy Plan: Pt discharging home on 06/25/17 with home OT/PT.
--- NOTE | 2017-06-25 11:07 | Rehab Discharge Summary ---
Patient Information - Patient Information Diagnosis: S/P Internal Fixation Intertrochanteric Femur Fracture Ordered Treatment: PT Evaluate and Treat Surgery: Yes (R hip stabilization w/Cephalomedullary Device ) Date of Surgery: 06/05/17 Past Medical/Surgical Hx: PAST MEDICAL/SURGICAL HISTORY Past Surgical History Biopsy of lung tissue knee surgery macular hole surgery PMH - Respiratory Hx Respiratory Disorders Yes Comment: emphysema, possible lung CA PMH - Cardiovascular Hx Cardiovascular Disorders Yes Hx Hypertension Yes Hx Irregular Heartbeat Yes: a-fib Comment: aortic stent PMH - Neuro Hx Neurological Disorders Yes Hx Dizziness Yes Hx Seizures No PMH - GI Hx Gastrointestinal Disorders No Hx Gastroesophageal Reflux Yes PMH - Hx Genitourinary Disorders Yes Hx Bladder Problem Yes: bladder stones Hx Kidney Stones Yes PMH - Endocrine Hx Endocrine Disorders Yes Hx Thyroid Disease Yes PMH - Musculoskeletal Hx Musculoskeletal Disorders Yes Hx Arthritis Yes Comment: lupus PMH - Psych Hx Psychiatric Problems Yes Hx Anxiety Yes PMH - Hematology/Oncology Hx Hematology/Oncology Yes Disorders Hx Anemia Yes Hx Cancer Yes: lung, colon Hx Chemotherapy No Hx Radiation Therapy Yes Comment: colectomy Social History: Detail (Pt. reports she lives in a single story home with her daughter and son-in-law. The pt. reports she has no stairs to ascend or descend , but does have a ramp that leads into the house. The pt. reports she has grab bars in her shower and by the toilet. The pt. uses a commode and has a walk in bathtub. The pt. reports she just has a small step to get into the tub, but that her son-in-law cut out a portion of the tub to make it easier to get in and out of the tub. The pt. reports she does not have a shower chair, and would not like to get one because she doesn't feel she would be able to have the strength to stand from the chair. The pt. reports she has a front wheeled walker , a single point cane, and a 3-point cane at home, but she does not use them because she feels they just get in her way. The pt. has oxygen at home, but does not currently use it. Before having the fracture, the patient was able to wash the dishes and do her laundry, and did cook for herself from time to time. The pt.'s daughter and son-in-law will be able to help as necessary.) Precautions: [place], Fall, Other (WBAT Right LE) - Time With Patient Total Time Spent With Patient (Min): 15 Treatment Procedures: Detail (Re-Evaluation, gait training, instruction of proper foot wear and home safety techniques.) Subjective Information - Subjective Information Per Patient (The patient had no complaints. The patient had some fear concerning falling again at home. Home safety and fall prevention techniques were reviewed with the patient and her daughter.) Objective Data - Mental Status Patient Orientation: Oriented x3 - Visual Perception Appears within normal limits for therapeutic activities - ROM Within normal limits (The patient's LE ROM is WFL,) - Strength/Tone Not within normal limits (The patient's LE strength is generally 4 to 4+/5, R LE strength hip flexors 3-/5, rotators 4/5, hip abductors and adductors 4-/5, knee and ankle musculature 4/5.) - Bed Mobility Independent (The patient was independent with supine to and from sit with and without use of leg block layer. The patient occasionally required minimal assist to lift R LE.) - Transfers Independent (Independent sit to and stand and toilet transfer.) - Balance Balance Sitting: Good Balance Standing: Fair (The patient's balance using the Tinetti Assessment Tool is 19/28 which is the moderate risk for fall category.) - Gait Detail (The patient ambulates with 2 wheeled walker WBAT on the R LE independently a distance of 140 feet plus. The patient did not need to ambulate on stairs secondary to patient has ramp.) Therapy Assessment - Therapy Assessment Detail (The patient has improved mobility and increased LE strength. The patient is to receive Home OT/PT.) Patient Education - Patient Education Teaching Topic: Exercise/Activity (LE strengthening exercises), Precautions ( Fall prevention techinques and proper foot wear to prevent falls.) Response: Return Demonstration Teaching Method: Demonstration Teaching Recipient: Patient, Family Barriers To Learning: Age Related Problem List - Problem List Physical Therapy Problem List: Detail (1. LE Weakness 2. LE ROM deficits 3. Gait impairments 4. Balance impairments 5. LE Pain 6. Apprehension to weight bear 7. Apprehension to move her R LE 8. Requires assistance with bed moblity and transfers) Occupational Therapy Problem List: Detail (1. Decreased Ind with functional mobility needed for safe and Ind self cares. 2. Decreased Ind with total body dressing. 3. Decreased Ind with showering 4. Decreased right UE strength and overall endurance needed for safe return home.) Goals - Goals Physical Therapy Goals: PT GOALS MET: 1. Pt. will safely and independently ambulate 100ft with a front-wheeled walker with no complaints of increased pain over 11/06. 2. Pt. will report decreased apprehension with weight bearing and movement of her R LE. 3. Pt. will be safe and independent with all bed mobility and transfers. 4. Pt. will verbalize and demonstrate understanding of her home exercise program. 5. Pt. will complete the Tinetti Assessment Balance Tool to help assess the pt.'s balance. Occupational Therapy Goals: Goals Met: 1. Pt will be Ind with bed mobility and transfers from various surfaces to allow Ind with dressing. 2. Pt will be Ind with total body dressing. 3. Pt will be Ind with showering in sitting or standing. 4. Pt will demonstrate improved endurance needed for safe and Ind self cares. Plan - Plan Physical Therapy Plan: The patient is discharging today to home. The patient is to receive Home PT and OT services. Occupational Therapy Plan: Pt discharging home on 06/25/17 with home OT/PT.
--- NOTE | 2017-06-26 16:23 | Discharge Summary ---
Providers Discharge Summary Date: 06/25/17 Date of admission: 06/07/17 12:01 Expected Date of Discharge: 06/25/17 Attending physician: Rahat James Primary care physician: Rahat James Physical Exam - General General Appearance: Alert, Oriented x3, Cooperative, No acute distress Limitations: No limitations - Head Head exam: Atraumatic, Normocephalic - Eye Eye exam: Normal appearance, PERRL - ENT ENT exam: Normal exam - Neck Neck exam: Normal inspection, Full ROM. negative: Tenderness - Respiratory Respiratory exam: Normal lung sounds bilaterally - Cardiovascular Cardiovascular Exam: Regular rate, Normal rhythm, Systolic murmur (chronic) Peripheral Pulses: 2+: Radial (R), Radial (L), Dorsalis Pedis (R), Dorsalis Pedis (L) - GI/Abdominal GI/Abdominal exam: Soft, Normal bowel sounds - Rectal Rectal exam: Deferred - exam: Deferred - Extremities Extremities exam: Normal inspection, Normal capillary refill, Other (RLE neurovascularly intact). negative: Calf tenderness, Pedal edema - Back Back exam: Reports: Normal inspection - Neurological Neurological exam: Alert, Oriented X3 - Psychiatric Psychiatric exam: Normal affect - Skin Skin exam: Intact (healed surgical incision on left hip, no dressing, no redness ), Normal color Hospitalization - Hospitalization Admission Diagnosis: S/P internal fixation intertrochanteric femur fx - Problem List (1) Intertrochanteric fracture of right femur Status: Acute Base Code: S72.141A - DISPLACED INTERTROCHANTERIC FRACTURE OF RIGHT FEMUR, INIT Comment: 06/25/17- s/p mechanical fall 06/03/17 and internal fixation at [facility] on 06/05 - Right hip surgical wound healing well, no redness or warmth -pain controlled with tylenol - had follow up with Dr. Bolivar on 06/18 and has routine healing. will see him back in 2 more weeks -Pt. set up with home PT/OT, she is ambulating indepently with walker (2) Physical deconditioning Status: Acute Base Code: R53.81 - OTHER MALAISE Comment: 06/25/17- Strenth is improving. She is ambulating with walker independently. -Pt. set up with home PT/OT -Plan to discharge home today - Hospitalization Course Disposition: Home Health Service Reason For Discharge/Transfer: Medical Stability Hospital Course: 81 y/o female admitted for deconditioning after tripping over rug at home and falling sustaining right intertrochanteric femur fx on 06/03/17 s/p right femur internal fixation 06/05/17. At baseline she is to use a cane to assist with ambulation, she was not using cane at time of trip and fall. She is an every day smoker using an nicotine patch currently. Does have remote history of colon cancer s/p resection she reports about a year ago with 1 left upper lung lesion considered metastatic in nature that was treated with 4 rounds of radiation.She reports is over due for her oncology follow up Other pertinent medical history includes a-fib on chronic oral anticoagulation therapy , hypothyroidism, lupus, emphysema with PRN oxygen use at home, dyslipidemia. Post operatively had significant pain leading to poor mobility, she was very hesitant to get out of bed, had a grijalva placed at that time to assist with urinary output. One day after arrival to [facility] grijalva was DC'd, Ethel increased for pain control, she was assisted out of bed several times by staff to sit in chair periodically while awaiting PT/OT consult. Dressing to right hip intact, due to be removed 06/12/17, no obvious signs of infection or hemorrhage. Post op hgb 9.7. Noted low albumin. Will be receiving Ensure supplementation during her admission. Recheck labs in 1 week, follow up Dr Sandra 2-4 weeks. 06/16/17- The patient is awake, alert and oriented. She says that she has had minimal pain from the site of surgery but she has been tolerating it well. 06/22/17- Patient states she is doing well today. She says her leg continues to ache but that the tylenol has been controlling her pain. She has been up ambulating with her walker to the bathroom independently and dressing independently. She says her appetite has been good and she denies any chest pain , headache, abdominal pain. 06/25/17- Pt. is resting comfortable in bed, she is awake, alert and oriented. She denies pain at the present time and she states she is looking forward to going home today. Her surgical incision is healing well, no redness or warmth observed, no dressing in place. Her pain has been well-controlled with PO tylenol. Abnormal Labs: Abnormal Lab Results 06/13/17 06/13/17 06/17/17 Range/Units 06:30 06:30 07:49 RBC 2.41 L 2.25 L (3.80-5.40) M/uL Hgb 8.4 L 8.1 L (11.6-16.0) gm/dl Hct 27.7 L 26.4 L (35.0-47.0) % MCV 114.9 H 117.3 H (81-97) fl MCH 34.8 H 36.0 H (27-33) pg MCHC 30.3 L 30.7 L (32-36) g/dl RDW 15.0 H (11.5-14.5) % Potassium 4.7 H (3.4-4.5) mmol/L Calcium 8.6 L (8.8-10.2) mg/dL 06/17/17 Range/Units 07:49 RBC (3.80-5.40) M/uL Hgb (11.6-16.0) gm/dl Hct (35.0-47.0) % MCV (81-97) fl MCH (27-33) pg MCHC (32-36) g/dl RDW (11.5-14.5) % Potassium 4.9 H (3.4-4.5) mmol/L Calcium (8.8-10.2) mg/dL Condition at Discharge: (2) Stable Discharge Diagnosis: s/p Right hip ORIF Discharge Medications - Discharge Medications Home Medications: Ambulatory Orders Levothyroxine Sodium [Levoxyl] 112 mcg PO DAILY 11/25/15 [Last Taken 11/25/15] Lisinopril [Zestril] 20 mg PO DAILY 11/25/15 [Last Taken 11/25/15] Discharge Plan - Discharge Instructions Activity at Discharge: Ambulate Only With Your Walker Diet at Discharge: Regular Diet Instructions: ORIF of Hip Fracture (DC) Additional Instructions: 2 Activity: TOLERATED, USE WALKER 2 Diet: TOLERATED 2 Consults: [] 2 Follow Up: [Dr. Sandra- orthopedics] 2 Dressing/Wound Care: (Type) (Change) 2 Additional: [] You have been set up with [facility] for continued physical and occupational therapy at home. A nurse will contact you within 48 hours of returning home to schedule a time to come out. You can reach Giles at . RESUME HOME MEDICATIONS Quality Measures - Quality Measures Quality Measures: Atrial Fibrillation & Atrial Flutter: Chronic Anticoagulation Therapy, Advance Directives, Documentation of Current Medications in Medical Record, Elder Maltreatment Screen and Follow-Up Plan, Screening for High Blood Pressure and F/U Documented - Current Medications Quality Measure: Measure #130: Documentation of Current Medications View Details: Yes Documentation of Current Medications: <Current Medications Documented/Reviewed> [D1117] - Blood Pressure Screening Quality Measure: Screening for High Blood Pressure and Follow-Up Documented Does Patient Have Any of the Following: Active Dx of HTN Blood Pressure Classification: Pre-Hypertensive BP Reading Systolic Measurement: 124 Diastolic Measurement: 64 Screening for High Blood Pressure: Patient Exclusion, Hx of HTN [G9744] - Atrial Fibrillation and Atrial Flutter Quality Measure: Atrial Fibrillation & Atrial Flutter: Chronic Anticoagulation Therapy Does Patient Have Any of the Following: No CHADS2 Risk Stratification: Age 75 or Greater, Hypertension Risk Stratification Summary: One or more high risk factors OR more than one moderate risk factor exists. [G8972] Anticoagulation Therapy: Patient Not Eligible [G8970] (No active diagnosis of a- fib) - Advance Directives Quality Measure: Measure #47: Care Plan Advance Directives Established: No Advance Directives Information Provided To Patient: Yes Advance Directives on File: No Living Will: No Power of Stick Roller: Yes Advance Care Planning: <Care Plan/Decision Maker Documented; Discussed & Documented> [3328N] - Elder Abuse Suspicion Index Screening: Elder Abuse Suspicion Index Screening Rely on people for bathing, dressing, shopping, banking, etc: No Prevented from getting food, clothes, medication, etc: No Made to feel shamed or threatened by someone: No Forced to sign papers or use money against will: No Feel afraid, touched in ways not wanted or hurt physically: No Poor eye contact, withdrawn, malnourished, cuts or bruises: No Screening Result: Negative result EASI Reference Information: Dustin MAZA, Ricardo Schumacher, Bekah D, Waldemar Yoon.Development and validation of a tool to assist physicians identification of elder abuse: The Elder Abuse Suspicion Index (EASI ). Journal of Elder Abuse and Neglect, 2008; 20 (3): 276-300. - Elder Maltreatment Screen Quality Measures: Elder Maltreatment Screen and Follow-Up Plan Elder Maltreatment Screen: <Negative, No Follow-Up Plan Required> [G8734]
== END 2017-06-25 12:50 | disposition home health service (06) | DRG 948 ==
LOC: MEDSURG 12:01
PROVIDERS: ADMIT Internal Medicine; ATTEND Internal Medicine
DX: R53.1 Weakness (principal); Z47.89 Encounter for other orthopedic aftercare; I48.91 Unspecified atrial fibrillation; Z78.9 Other specified health status; I10 Essential (primary) hypertension; Z79.01 Long term (current) use of anticoagulants; J44.9 Chronic obstructive pulmonary disease, unspecified; F17.210 Nicotine dependence, cigarettes, uncomplicated; Z85.038 Personal history of other malignant neoplasm of large intestine
CPT/HCPCS: 80048; 82607; 82746; 85025; 90670; 94760; 94761; 97110; 97116; 97165; 97530; 97535; 99306; 99309; 99316

== ENCOUNTER 2019-06-26 11:02 | Emergency (ER) | payer MEDICARE, BC ==
[2019-06-26] MEDS ORDERED: ONDANSETRON HCL IV 4 MG/2 ML VIAL IVP ONE (11:39)
[2019-06-26 11:54] LABS: ABSOLUTE NEUTROPHIL COUNT 3.51; BASO % 0.6 % (0-6); EOS % 3.1 % (0-6); GRAN % 69.1 % (47-80); HEMATOCRIT 33.8 % (35.0-47.0); LYMPH % 21.3 % (16-45); MEAN CORPUSCULAR HEMOGLOBIN 33.4 pg (27-33); MEAN CORPUSCULAR HGB CONC 29.6 g/dl (32-36); MEAN PLATELET VOLUME 10.1 fl (7.4-10.4); MONO % 5.9 % (0-9); PLATELET COUNT 207 K/uL (130-400); RED BLOOD COUNT 2.99 M/uL (3.80-5.40); WHITE BLOOD COUNT W/O DIFF 5.1 K/uL (4.2-12.2)
[2019-06-26] MEDS ORDERED: 0.9 % SODIUM CHLORIDE 1,000 ML BAG IV ONE (11:56)
[2019-06-26 12:07] LABS: BLOOD UREA NITROGEN 18 mg/dL (8-23); CREATININE 0.8 mg/dL (0.5-0.9); EST GLOMERULAR FILTRATION RATE > 60 mL/min
[2019-06-26 12:08] LABS: TOTAL PROTEIN 7.1 g/dL (6.6-8.7)
[2019-06-26 12:10] LABS: GLUCOSE,RANDOM 107 mg/dL (74-109)
[2019-06-26 12:13] LABS: ALB/GLOB RATIO 1.1 (1.1-1.8); ALBUMIN 3.7 g/dL (4.0-5.0); ALKALINE PHOSPHATASE 68 U/L (35-104); ALT/SGPT 11 U/L (<33); AST/SGOT 22 U/L (10.0-35.0)
--- NOTE | 2019-06-26 12:58 | Emergency Department Record ---
History of Present Illness - General Chief Complaint: Back Pain/Injury Stated Complaint: BACK/RIB PAIN Time Seen by Provider: 06/26/19 11:26 Source: Patient Mode of Arrival: Ambulatory Limitations: No limitations - History of Present Illness Initial Comments: pt c/o back pain for 5 days. she also has nausea and vomited blood 2 days ago. she is scheduled to have a ct in jun to follow her lung ca. she has vomited blood in the past and had a scope but at that time she was on eliquis and no longer is MD Complaint: Back pain Onset/Timin -: Days(s) Similar Symptoms Previously: Yes Place: Home Severity: Moderate Severity scale (1-10): 6 Quality: Aching Context: Unknown Associated Symptoms: Nausea/vomiting - Related Data Home Medications Medication Instructions Recorded Confirmed Last Taken Alendronate Sodium [Fosamax] 70 mg PO WEEKLY 06/26/19 06/26/19 1 Day Ago ~06/25/19 Aspirin [Aspirin EC] 81 mg PO DAILY 06/26/19 06/26/19 1 Day Ago ~06/25/19 Atorvastatin Calcium 20 mg PO DAILY 06/26/19 06/26/19 1 Day Ago ~06/25/19 Previous Rx's Medication Instructions Recorded Hydrocodone/Acetaminophen [[place] 0.5 - 1 tab PO TID PRN #7 tab 06/26/19 5mg/325mg] Allergies Allergy/AdvReac Type Severity Reaction Status Date / Time No Known Drug Allergies Allergy Verified 06/26/19 11:13 Travel Screening - Travel/Exposure Within Last 30 Days Have you traveled within the last 30 days?: No - Travel/Exposure Within Last Year Have you traveled outside the [place] in the last year?: No - Additonal Travel Details Have you been exposed to anyone with a communicable illness?: No - Travel Symptoms Symptom Screening: None Review of Systems Reviewed: No additional complaints except as noted below Constitutional: Reports: As per HPI. Denies: Chills, Fever, Malaise, Night sweats, Weakness, Weight change Eyes: Reports: As per HPI. Denies: Eye discharge, Eye pain, Photophobia, Vision change ENT: Reports: As per HPI. Denies: Congestion, Dental pain, Ear pain, Epistaxis, Hearing loss, Throat pain Respiratory: Reports: As per HPI. Denies: Cough, Dyspnea, Hemoptysis, Stridor, Wheezes Cardiovascular: Reports: As per HPI. Denies: Arrhythmia, Chest pain, Dyspnea on exertion, Edema, Murmurs, Orthopnea, Palpitations, Paroxysmal nocturnal dyspnea, Rheumatic Fever, Syncope Endocrine: Reports: As per HPI. Denies: Fatigue, Heat or cold intolerance, Polydipsia, Polyuria Gastrointestinal: Reports: As per HPI. Denies: Abdominal pain, Constipation, Diarrhea, Hematemesis, Hematochezia, Melena, Nausea, Vomiting Genitourinary: Reports: As per HPI. Denies: Abnormal menses, Discharge, Dyspareunia, Dysuria, Frequency, Hematuria, Incontinence, Retention, Urgency Musculoskeletal: Reports: As per HPI. Denies: Arthralgia, Back pain, Gout, Joint swelling, Myalgia, Neck pain Skin: Reports: As per HPI. Denies: Bruising, Change in color, Change in hair/nails, Lesions, Pruritus, Rash Neurological: Reports: As per HPI. Denies: Abnormal gait, Confusion, Headache, Numbness, Paresthesias, Seizure, Tingling, Tremors, Vertigo, Weakness Psychiatric: Reports: As per HPI. Denies: Anxiety, Auditory hallucinations, Depression, Homicidal thoughts, Suicidal thoughts, Visual hallucinations Hematological/Lymphatic: Reports: As per HPI. Denies: Anemia, Blood Clots, Easy bleeding, Easy bruising, Swollen glands Past Medical History - SOCIAL HISTORY Smoking Status: Current every day smoker Alcohol Use: None Drug Use: None - RESPIRATORY Hx Respiratory Disorders: Yes Hx COPD: Yes Comment:: emphysema, possible lung CA - CARDIOVASCULAR Hx Cardio Disorders: Yes Hx Hypertension: Yes Hx Irregular Heartbeat: Yes (a-fib) Comment:: aortic stent - NEURO Hx Neuro Disorders: Yes Hx Seizures: No - GI Hx GI Disorders: Yes Hx Reflux: Yes Hx Rectal Bleeding: Yes (related to elequis) - Hx Genitourinary Disorders: Yes Hx Bladder Problem: Yes (bladder stones) Hx Kidney Stones: Yes - ENDOCRINE Hx Endocrine Disorders: Yes Hx Thyroid Disease: Yes - MUSCULOSKELETAL Hx Musculoskeletal Disorders: Yes Hx Arthritis: Yes Comment:: lupus - PSYCH Hx Psych Problems: Yes Hx Anxiety: Yes - HEMATOLOGY/ONCOLOGY Hx Hematology/Oncology Disorders: Yes Hx Anemia: Yes Hx Cancer: Yes (lung, colon) Hx Chemotherapy: No Hx Radiation Therapy: Yes Comment:: colectomy Family Medical History Any Significant Family History?: Yes Family Hx Comment (NOT TO BE USED IN PLACE OF ITEMS BELOW): father- MS Hx Diabetes: Grandparents Hx Heart Disease: Mother, Grandparents Physical Exam - General General Appearance: Alert, Oriented x3, Cooperative, Mild distress - Head Head exam: Normal inspection - Eye Eye exam: Normal appearance, PERRL, EOMI Pupils: Normal accommodation - ENT ENT exam: Normal exam, Mucous membranes moist, Normal external ear exam, Normal orophraynx Ear exam: Normal external inspection. negative: External canal tenderness Nasal Exam: Normal inspection. negative: Discharge, Sinus tenderness Mouth exam: Normal external inspection, Tongue normal Teeth exam: Normal inspection. negative: Dental caries Throat exam: Normal inspection. negative: Tonsillar erythema, Tonsillar exudate - Neck Neck exam: Normal inspection, Full ROM. negative: Tenderness - Respiratory Respiratory exam: Normal lung sounds bilaterally. negative: Respiratory distress - Cardiovascular Cardiovascular Exam: Regular rate, Normal rhythm, Normal heart sounds - GI/Abdominal GI/Abdominal exam: Soft, Normal bowel sounds. negative: Tenderness - Rectal Rectal exam: Deferred - exam: Deferred - Extremities Extremities exam: Normal inspection, Full ROM, Normal capillary refill. negative: Tenderness - Back Back exam: Reports: Full ROM, Tenderness. Denies: Muscle spasm, Rash noted - Neurological Neurological exam: Alert, CN II-XII intact, Normal gait, Oriented X3 - Psychiatric Psychiatric exam: Normal affect, Normal mood - Skin Skin exam: Dry, Intact, Normal color, Warm Course Vital Signs 06/26/19 11:03 Temperature 98.2 F Pulse Rate 86 Respiratory 18 Rate Blood Pressure 169/97 Pulse Ox 96 - Reevaluation(s) Reevaluation #1: 06/26/19 13:42 pts nausea is better. Medical Decision Making - Lab Data Result diagrams: 06/26/19 11:32 06/26/19 11:32 Lab Results 06/26/19 06/26/19 Range/Units 11:32 11:32 WBC 5.1 (4.2-12.2) K/uL RBC 2.99 L (3.80-5.40) M/uL Hgb 10.0 L (11.6-16.0) gm/dl Hct 33.8 L (35.0-47.0) % MCV 113.0 H (81-97) fl MCH 33.4 H (27-33) pg MCHC 29.6 L (32-36) g/dl RDW 15.0 H (11.5-14.5) % Plt Count 207 (130-400) K/uL MPV 10.1 (7.4-10.4) fl Gran % 69.1 (47-80) % Lymphocytes % 21.3 (16-45) % Monocytes % 5.9 (0-9) % Eosinophils % 3.1 (0-6) % Basophils % 0.6 (0-6) % Absolute Neutrophils 3.51 Sodium 143 (136-145) mmol/L Potassium 4.2 (3.4-4.5) mmol/L Chloride 107 (98-107) mmol/L Carbon Dioxide 25.0 (22-29) mmol/L Anion Gap 11.0 (7-16) BUN 18 (8-23) mg/dL Creatinine 0.8 (0.5-0.9) mg/dL Estimated GFR > 60 mL/min Random Glucose 107 (74-109) mg/dL Calcium 9.0 (8.8-10.2) mg/dL Total Bilirubin 0.20 (0.2-1.0) mg/dL AST 22 (10.0-35.0) U/L ALT 11 (<33) U/L Alkaline Phosphatase 68 (35-104) U/L Total Protein 7.1 (6.6-8.7) g/dL Albumin 3.7 L (4.0-5.0) g/dL Globulin 3.4 (1.4-4.8) gm/dL Albumin/Globulin Ratio 1.1 (1.1-1.8) Disposition Disposition: Discharge Clinical Impression: History of hematemesis Back pain Qualifiers: Back pain location: thoracic back pain Chronicity: acute Back pain laterality: bilateral Qualified Code(s): M54.6 - Pain in thoracic spine Disposition: Home, Self-Care Condition: (1) Good Instructions: Back Pain (ED), Hematemesis (ED) Additional Instructions: follow up with family doctor. return sooner if worse. stop motrin. see GI doctor for endoscopy Prescriptions: Hydrocodone/Acetaminophen [[place] 5mg/325mg] 0.5 - 1 tab PO TID PRN #7 tab PRN Reason: Pain - General Quality - Quality Measures Quality Measures: N/A - Blood Pressure Screening Does Patient Have Any of the Following: Active Dx of HTN Blood Pressure Classification: Hypertensive Reading Systolic Measurement: 169 Diastolic Measurement: 97 Screening for High Blood Pressure: Patient Exclusion, Hx of HTN [G9744]
--- NOTE | 2019-06-26 13:33 | CT SCAN REPORT ---
EXAMINATION: CT Chest with IV Contrast EXAM DATE: 06/26/2019 1:19 PM TECHNIQUE: Standard protocol CT imaging of the chest with intravenous contrast was performed. Coronal and sagittal images were reconstructed. IV Contrast: The amount and type of contrast are recorded in the medical record. INDICATION: Chest pain COMPARISON: November 16, 2018 ENCOUNTER: Not applicable CHEST FINDINGS: Base of Neck & Axillae: There is no adenopathy. Mediastinum & Gely: Mildly enlarged precarinal lymph node measuring 1.1 cm short axis not significant ly changed. Cardiovascular: The heart has a normal size. Mild to moderate atherosclerotic calcifications of the c oronary arteries. There is no pericardial effusion. Mild dilatation of the ascending aorta measuring 4.3 cm unchanged. No dissection. Mild distention of the main pulmonary artery as before measuring 3. 9 cm. This can be associated with pulmonary hypertension. No evidence of acute pulmonary embolus. Tracheobronchial Structures: There is no bronchial wall thickening or bronchiectasis. Lung Parenchyma: Moderate pulmonary emphysema as before. There are scattered areas of pleural and par enchymal scarring which remain stable. No new airspace disease. No new or enlarging pulmonary nodule or mass. Stable appearance. Pleural Space: There are no pleural effusions. There is no pneumothorax. Upper Abdomen: Stable left renal cyst. Partial demonstration of abdominal aortic endovascular stent g raft as before. Chest Wall & Musculoskeletal: No suspicious bone lesions. Stable mild anterior wedge compression frac ture deformity of a midthoracic vertebral body. IMPRESSION: Stable exam. Incidental findings detailed above. Dictated by: Darius Leiva DO on 06/26/2019 1:23 PM. .
[2019-06-26] MEDS ORDERED: KETOROLAC 30 MG/ML VIAL IVP ONE (13:37)
[2019-06-26] MEDS ORDERED: ONDANSETRON 4 MG ODT TABLET SL ONE (14:12)
== END 2019-06-26 14:25 | disposition home or self-care (01) ==
LOC: ER 11:02
DX: M54.6 Pain in thoracic spine (principal); K92.0 Hematemesis; R11.0 Nausea; I48.91 Unspecified atrial fibrillation; I10 Essential (primary) hypertension; F17.210 Nicotine dependence, cigarettes, uncomplicated
CPT/HCPCS: 99284 ×2; 96374; 96375; 85025; 80053; 71260; Q9967; J1885; J2405; J7030